=== PATIENT | female | born 1950 | race Caucasian/White ===

== ENCOUNTER → 2017-12-09 08:23 | Outpatient (CLI) | payer MEDICARE, OTHER, SELFPAY ==
--- NOTE | 2017-12-09 08:27 | BI_ITS ---
MAMMOGRAPHY - BILATERAL SCREENING REASON FOR EXAM: Female, 67 years old. Routine annual screening examination. PERTINENT HISTORY: Aunt with breast cancer. TECHNIQUE: Digital bilateral breast maureen (3D mammographic acquisition) in the CC and MLO projections. 2-D mediolateral oblique (MLO) and craniocaudad (CC) views of both breasts were obtained. CAD: Full Field Digital Mammography with Computer Added Detection was performed. COMPARISON: Comparison is made with prior examination dated June 28, 2016 and June 27, 2015. FINDINGS: Breast Composition: The breasts are heterogeneously dense, which may obscure small masses. There are no dominant masses or suspicious calcifications. No other significant abnormalities are identified. There has been no significant change since the prior study. BI/SCREENING MAMM (CAD), BILAT IMPRESSION: Stable bilateral screening mammogram. Yearly follow-up mammogram recommended. (A) ASSESSMENT CATEGORY: BIRADS Category 1: Negative. A letter regarding these results will be sent to the patient by the facility within 30 days. Approximately 10% of breast cancers are not detected by mammography. A normal mammogram should not delay biopsy of a clinically suspicious abnormality. [id number] Electronically Signed: Keo Palomo MD at 13:14 EDT Tel [phone], Service support ,
== END ==
PROVIDERS: Family Provider Family Medicine; PCP Family Medicine; Visit Provider Family Medicine
DX: Z00.00 Encounter for general adult medical examination without abnormal findings (principal); Z12.31 Encounter for screening mammogram for malignant neoplasm of breast
CPT/HCPCS: 77063; 77067

== ENCOUNTER → 2018-12-05 09:07 | Outpatient (CLI) | payer MEDICARE, OTHER, SELFPAY ==
--- NOTE | 2018-12-05 09:14 | BD_ITS ---
STUDY: DUAL ENERGY X-RAY ABSORPTIOMETRY / DXA REASON FOR EXAM: Female, 68 years old. The patient is postmenopausal. No loss of height. TECHNIQUE: Bone Mineral Density (BMD) measurements of lumbar spine and bilateral hips were obtained. COMPARISON: Comparison is made with prior examination dated June 26, 2014. FINDINGS: Lumbar Spine (L1-L4): g/cm2 (1.050) / T-score (-1.1) / Z-score (0.5) Findings are suggestive of osteopenia with a low fracture risk. Increased thoracic kyphosis. Left Femur Total: g/cm2 (0.907) / T-score (-0.8) / Z-score (0.5) Left Femoral Neck: g/cm2 (0.764) / T-score (-2.0) / Z-score (-0.4) Right Femur Total: g/cm2 (0.864) / T-score (-1.1) / Z-score (0.1) Right Femoral Neck: g/cm2 (0.742) / T-score (-2.1) / Z-score (-0.6) The T-Scores on the most recent prior examination were: Lumbar Spine (L1-L4): There has been worsening of bone density since the previous examination. Left Femur Total: which represents a worsening of 1.7%. Right Femur Total: which represents an improvement of 0.1%. BD/Dexa Bone Density Study IMPRESSION: The patient is considered osteopenic as outlined below according to World [employer] Organization (WHO) criteria with a moderate fracture risk. There has been worsening of bone density since the previous examination. Reference Information: The T-score is the number of standard deviations above or below the standard which is normal for young adults at their peak bone mineral density. The World Health Organization (WHO) interprets the T-scores as follows: Above -1 Normal bone density Between -1 and -2.5 Osteopenia Equal to / or below -2.5 Osteoporosis As a practical clinical guideline, osteopenia may be graded as follows: Mild -1 through -1.5 Moderate -1.6 through -2.0 Severe -2.1 through -2.4 The Z-score is the number of standard deviations above or below age-matched controls. A Z-score of less than -1.5 would be considered abnormal. References: 1. NIH Osteoporosis and Related Bone Diseases http://www.osteo.org 2. International Society for Clinical Densitometry http://www.iscd.org 3. National Osteoporosis Foundation http://www.nof.org Electronically Signed: Keo Palomo, at 11:11 EDT , Service support ,
== END ==
PROVIDERS: Family Provider Family Medicine; PCP Family Medicine; Referring Provider Family Medicine; Visit Provider Family Medicine
DX: Z78.0 Asymptomatic menopausal state (principal)
CPT/HCPCS: 77080

== ENCOUNTER → 2018-12-18 15:07 | Outpatient (CLI) | payer MEDICARE, OTHER, SELFPAY ==
--- NOTE | 2018-12-18 15:09 | BI_ITS ---
MAMMOGRAPHY - BILATERAL SCREENING REASON FOR EXAM: Female, 68 years old. Routine annual screening examination. PERTINENT HISTORY: Aunt with breast cancer. TECHNIQUE: Digital bilateral breast wayne (3D mammographic acquisition) in the CC and MLO projections. 2-D mediolateral oblique (MLO) and craniocaudad (CC) views of both breasts were obtained. CAD: Full Field Digital Mammography with Computer Added Detection was performed. COMPARISON: Comparison is made with prior examination dated December 09, 2017 and June 28, 2016. FINDINGS: Breast Composition: The breasts are heterogeneously dense, which may obscure small masses. There are no dominant masses or suspicious calcifications. No other significant abnormalities are identified. There has been no significant change since the prior study. BI/SCREEN MAMM (CAD) W/WAYNE BILAT IMPRESSION: Stable bilateral screening mammogram. Yearly follow-up mammogram recommended. (A) ASSESSMENT CATEGORY: BIRADS Category 1: Negative. A letter regarding these results will be sent to the patient by the facility within 30 days. Approximately 10% of breast cancers are not detected by mammography. A normal mammogram should not delay biopsy of a clinically suspicious abnormality. [id number] Electronically Signed: Keo Palomo, at 15:56 EDT , Service support ,
== END ==
PROVIDERS: Family Provider Family Medicine; PCP Family Medicine; Referring Provider Family Medicine; Visit Provider Family Medicine
DX: Z12.31 Encounter for screening mammogram for malignant neoplasm of breast (principal)
CPT/HCPCS: 77063; 77067

== ENCOUNTER → 2018-12-20 08:12 | Outpatient (CLI) | payer MEDICARE, OTHER, SELFPAY ==
[2018-12-20 10:20] LABS: Anion Gap 8 (5-15); BUN 22 mg/dL (7-18); Calcium,Total 8.7 mg/dL (8.5-10.1); Chloride 109 mmol/L (98-107); Cholesterol 208 mg/dL (200); Creatinine, Serum 1.05 mg/dL (0.55-1.02); EST Glomerular Filtration Rate 56 mL/min (>60); Est Glom Filt Rate - Afr Amer 67 mL/min (>60); Glucose 90 mg/dL (74-106); High Density Lipoprotein 77 mg/dL; Potassium 4.4 mmol/L (3.5-5.1); Sodium Level 142 mmol/L (136-145); Triglycerides 64 mg/dL; Very Low Density Lipoprotein 13 mg/dL (5-40)
[2018-12-20 10:23] LABS: Vitamin D,25 Hydroxy 47.4 ng/mL (29.95-100.01)
== END ==
PROVIDERS: Family Provider Family Medicine; PCP Family Medicine; Referring Provider Family Medicine; Visit Provider Family Medicine
DX: Z13.220 Encounter for screening for lipoid disorders (principal); R03.0 Elevated blood-pressure reading, without diagnosis of hypertension
CPT/HCPCS: 36415; 80048; 80061; 82306

== ENCOUNTER → 2020-03-05 07:33 | Outpatient (CLI) | payer MEDICARE, OTHER, SELFPAY ==
--- NOTE | 2020-03-05 07:36 | BI_ITS ---
MAMMOGRAPHY - BILATERAL SCREENING REASON FOR EXAM: Female, 69 years old. Routine annual screening examination. PERTINENT HISTORY: Aunt with breast cancer. TECHNIQUE: Digital bilateral breast wayne (3D mammographic acquisition) in the CC and MLO projections. 2-D mediolateral oblique (MLO) and craniocaudad (CC) views of both breasts were obtained. CAD: Full Field Digital Mammography with Computer Added Detection was performed. COMPARISON: Comparison is made with the prior examination dated 12/18/2018 and 12/09/2017 FINDINGS: Breast Composition: The breasts are heterogeneously dense, which may obscure small masses. There are no dominant masses or suspicious calcifications. Stable benign appearing bilateral axillary lymph nodes. No other significant abnormalities are identified. There has been no significant change since the prior study. BI/SCREEN MAMM (CAD) W/WAYNE BILAT IMPRESSION: Stable bilateral screening mammogram. Yearly follow-up mammogram recommended. (A) ASSESSMENT CATEGORY: BIRADS Category 2: Benign. A letter regarding these results will be sent to the patient by the facility within 30 days. Approximately 10% of breast cancers are not detected by mammography. A normal mammogram should not delay biopsy of a clinically suspicious abnormality. [id number] Electronically Signed: Keo Palomo, at 8:29 EDT , Service support ,
== END ==
PROVIDERS: PCP Family Medicine; Referring Provider Family Medicine; Visit Provider Family Medicine
DX: Z12.31 Encounter for screening mammogram for malignant neoplasm of breast (principal)
CPT/HCPCS: 77063; 77067

== ENCOUNTER → 2020-03-12 08:33 | Outpatient (CLI) | payer MEDICARE, OTHER, SELFPAY ==
[2020-03-12 10:33] LABS: Anion Gap 6 (5-15); BUN 18 mg/dL (7-18); BUN/Creat Ratio 16.8 RATIO (10-20); Calcium,Total 8.7 mg/dL (8.5-10.1); Chloride 107 mmol/L (98-107); Cholesterol 221 mg/dL (200); Creatinine, Serum 1.07 mg/dL (0.55-1.02); EST Glomerular Filtration Rate 54 mL/min (>60); Est Glom Filt Rate - Afr Amer 66 mL/min (>60); Glucose 91 mg/dL (74-106); High Density Lipoprotein 81 mg/dL; Potassium 3.9 mmol/L (3.5-5.1); Sodium Level 139 mmol/L (136-145); Triglycerides 108 mg/dL; Very Low Density Lipoprotein 22 mg/dL (5-40)
== END ==
PROVIDERS: PCP Family Medicine; Referring Provider Family Medicine; Visit Provider Family Medicine
DX: E55.9 Vitamin D deficiency, unspecified (principal); Z13.220 Encounter for screening for lipoid disorders; R03.0 Elevated blood-pressure reading, without diagnosis of hypertension
CPT/HCPCS: 36415; 80048; 80061; 82306

== ENCOUNTER → 2020-12-18 10:50 | Outpatient (CLI) | payer MEDICARE, OTHER, SELFPAY ==
--- NOTE | 2020-12-18 10:58 | MRI_ITS ---
STUDY: MRI LEFT KNEE REASON FOR EXAM: Anterior left knee pain and swelling for 3-5 years. TECHNIQUE: Standardized fat and water weighted pulse sequences were obtained in all 3 orthogonal planes. COMPARISON: Radiographs 04/04/2017. FINDINGS: There is diffuse tear/degeneration of the medial meniscus (proton-density sagittal images 10-16; proton-density coronal images 14-19). There is arthrosis of the medial femorotibial compartment with marginal osteophytes and chondral loss (T2 sagittal image 9). There is very mild bone edema of the medial femoral condyle (T2 coronal images 18-20). Normal medial collateral ligamentous complex (MCL). Normal distal semimembranosus, gracilis and semitendinosus tendons. There is a complex tear of the anterior horn of the lateral meniscus (proton-density sagittal images 29-32). Normal hyaline cartilage of the lateral femorotibial compartment. There are small marginal osteophytes of the lateral femorotibial compartment. Normal lateral femoral condyle and tibial plateau. Normal proximal tibiofibular articulation. Normal lateral collateral (fibular) ligament. Normal popliteus tendon. Normal biceps femoris tendon. Normal anterior cruciate ligament (ACL). Normal posterior cruciate ligament (PCL). Normal congruent patellofemoral articulation. There is mild arthrosis of the patellofemoral compartment with marginal osteophytes and mild partial-thickness chondral loss (T2 sagittal image 12). Normal medial and lateral patellar retinaculum. Normal visualized quadriceps tendon. Normal patellar tendon. Normal Hoffa''s fat pad. There is a moderate-sized joint effusion. There is a popliteal cyst (T2 sagittal images 6-9) measuring approximately 4 cm in length. There is mild prepatellar bursitis (T2 sagittal images 12, 13). There is mild cystic change of the proximal tibia at the insertion site of the anterior cruciate ligament. MRI/Lower Ext Joint Only (Routine) IMPRESSION: Tear/degeneration of the medial meniscus. Lateral meniscal tear. Arthrosis of the medial femorotibial and patellofemoral compartments. Very mild bone edema of the medial femoral condyle.s Joint effusion. Popliteal cyst. Mild prepatellar bursitis. Electronically Signed: Mikel Gray MD at 12:50 EDT Tel , Service support ,
== END ==
PROVIDERS: PCP Family Medicine; Referring Provider Family Medicine; Visit Provider Family Medicine
DX: M25.562 Pain in left knee (principal)
CPT/HCPCS: 73721

== ENCOUNTER → 2021-01-26 14:20 | Outpatient (CLI) | payer MEDICARE, OTHER, SELFPAY ==
[2021-01-26 17:45] LABS: Absolute Lymphocyte Count 1.39 X10^3/uL (0.83-4.51); Absolute Neutrophil Count 3.7 X10^3/uL (2.0-7.7); Basophil# 0.08 X10^3/uL; Basophil% 1.4 % (0-1); Eosinophil# 0.07 X10^3/uL; Eosinophils% 1.2 % (0-5); Hematocrit 43.9 % (37-47); Hemoglobin 14.1 g/dL (12.0-15.0); Lymphocyte # 1.39 X10^3/ul (0.83-4.51); Mean Corp Hgb Conc 32.1 g/dL (32-36); Mean Corpuscular Hgb 28.8 pg (27.0-32.0); Mean Corpuscular Volume 89.8 fL (81-99); Mean Platelet Vol. 10.9 fl (6.2-12.0); Monocyte# 0.56 X10^3/uL; Monocyte% 9.7 % (0-10); NRBC Flagged by Analyzer 0 % (0-5); Neutrophil # 3.67 X10^3/uL (2.7-7.7); Neutrophil % 63.5 % (47-70); Platelet Count 244 K/mm3 (150-450); RBC Distribution Width CV 14.3 % (11.6-14.6); Red Blood Count 4.89 M/mm3 (4.2-5.4); White Blood Count 5.8 K/mm3 (4.4-11.0)
[2021-01-26 18:16] LABS: Anion Gap 10 (5-15); BUN 23 mg/dL (7-18); BUN/Creat Ratio 24.3 RATIO (10-20); Calcium,Total 9.2 mg/dL (8.5-10.1); Chloride 102 mmol/L (98-107); Creatinine, Serum 0.95 mg/dL (0.55-1.02); EST Glomerular Filtration Rate 62 mL/min (>60); Est Glom Filt Rate - Afr Amer 75 mL/min (>60); Glucose 82 mg/dL (74-106); Potassium 4.3 mmol/L (3.5-5.1); Sodium Level 137 mmol/L (136-145)
== END ==
PROVIDERS: PCP Family Medicine; Referring Provider Family Medicine; Visit Provider Family Medicine
DX: Z00.00 Encounter for general adult medical examination without abnormal findings (principal)
CPT/HCPCS: 36415; 80048; 85025

== ENCOUNTER → 2021-02-05 06:45 | Outpatient (CLI) | payer MEDICARE, OTHER, SELFPAY ==
--- NOTE | 2021-02-05 06:46 | CT_ITS ---
STUDY: LEFT LOWER EXTREMITY CT SCAN REASON FOR EXAM: Female, 70 years old. VARUS DEFORMITY,NOT ELSEWHERE CLASSIFIED, L KNEE. Presurgical planning. RADIATION DOSAGE (If Supplied By Facility): CTDIvol = ( 20.03 ) mGy, DLP = ( 1072.55 ) mGycm. Individualized dose optimization techniques were used for this CT.? TECHNIQUE: Axial multidetector CT scan of the left lower extremity. Coronal and sagittal reformatted images. COMPARISON: MRI dated 12/18/2020. FINDINGS: No acute fracture, dislocation or cortical destruction. Left hip: Left hip mild osteoarthritis. Left proximal femur nonaggressive sclerotic bone lesion measuring 1.1 x 1 cm (coronal image 65 series 601). Mild pubic symphysis arthrosis. Visualized intra-abdominal/pelvic contents within normal limits given technique. Left knee: Severe medial compartment arthrosis. Mild lateral compartment arthrosis. Mild patellofemoral arthrosis. Quadriceps enthesophyte. Large volume joint effusion. Moderate-sized popliteal cyst. Mild soft tissue swelling. Left ankle: Plantar spur. Achilles enthesophyte. Minimal tibiotalar and subtalar arthrosis. Mild soft tissue swelling. CT/Extremity Lower without Contra IMPRESSION: Left knee tricompartmental osteoarthritis predominating medially Left knee large joint effusion, moderate sized popliteal cyst and mild soft tissue swelling Left hip and left ankle mild osteoarthritis Left proximal femoral nonaggressive appearing sclerotic bone lesion (statistically bone island unless history of malignancy) Electronically Signed: Cody Ramírez DO at 12:55 EDT Tel , Service support ,
== END ==
PROVIDERS: PCP Family Medicine; Referring Provider Specialist; Visit Provider Specialist
DX: M21.162 Varus deformity, not elsewhere classified, left knee (principal)
CPT/HCPCS: 73700

== ENCOUNTER → 2021-02-09 07:34 | Outpatient (CLI) | payer MEDICARE, OTHER, SELFPAY ==
[2021-02-09 10:23] LABS: Albumin, Serum 3.6 g/dL (3.2-5.0)
== END ==
PROVIDERS: PCP Family Medicine; Referring Provider Physician Assistant Surgical; Visit Provider Physician Assistant Surgical
DX: Z01.818 Encounter for other preprocedural examination (principal)
CPT/HCPCS: 36415; 82040

== ENCOUNTER → 2021-04-16 07:44 | Outpatient (CLI) | payer MEDICARE, OTHER, SELFPAY ==
[2021-04-16 10:22] LABS: Anion Gap 7 (5-15); BUN 21 mg/dL (7-18); BUN/Creat Ratio 20.6 RATIO (10-20); Calcium,Total 8.9 mg/dL (8.5-10.1); Chloride 102 mmol/L (98-107); Cholesterol 203 mg/dL (200); Creatinine, Serum 1.02 mg/dL (0.55-1.02); EST Glomerular Filtration Rate 57 mL/min (>60); Est Glom Filt Rate - Afr Amer 69 mL/min (>60); Glucose 88 mg/dL (74-106); High Density Lipoprotein 71 mg/dL; Potassium 4.2 mmol/L (3.5-5.1); Sodium Level 136 mmol/L (136-145); Triglycerides 107 mg/dL; Very Low Density Lipoprotein 21 mg/dL (5-40)
== END ==
PROVIDERS: PCP Family Medicine; Referring Provider Family Medicine; Visit Provider Family Medicine
DX: I10 Essential (primary) hypertension (principal)
CPT/HCPCS: 36415; 80048; 80061

== ENCOUNTER → 2021-06-30 10:47 | Outpatient (CLI) | payer MEDICARE, OTHER, SELFPAY ==
--- NOTE | 2021-06-30 10:49 | BI_ITS ---
MAMMOGRAPHY - BILATERAL SCREENING REASON FOR EXAM: Female, 71 years old. Routine annual screening examination. PERTINENT HISTORY: Aunt with breast cancer. TECHNIQUE: Digital bilateral breast maureen (3D mammographic acquisition) in the CC and MLO projections. 2-D mediolateral oblique (MLO) and craniocaudad (CC) views of both breasts were obtained. CAD: Full Field Digital Mammography with Computer Added Detection was performed. COMPARISON: Comparison is made with prior study dated 03/05/2020 and 12/18/2018. FINDINGS: Breast Composition: The breasts are heterogeneously dense, which may obscure small masses. There are no dominant masses or suspicious calcifications. Stable small benign-appearing bilateral axillary lymph nodes. No other significant abnormalities are identified. There has been no significant change since the prior study. BI/SCREENING MAMM (CAD), BILAT IMPRESSION: Stable bilateral screening mammogram. Yearly follow-up mammogram recommended. (A) ASSESSMENT CATEGORY: BIRADS Category 2: Benign. A letter regarding these results will be sent to the patient by the facility within 30 days. Approximately 10% of breast cancers are not detected by mammography. A normal mammogram should not delay biopsy of a clinically suspicious abnormality. [id number] Electronically Signed: Keo Palomo MD at 12:54 EST , Service support ,
== END ==
PROVIDERS: PCP Family Medicine; Referring Provider Family Medicine; Visit Provider Family Medicine
DX: Z12.31 Encounter for screening mammogram for malignant neoplasm of breast (principal)
CPT/HCPCS: 77067

== ENCOUNTER → 2021-11-20 | Outpatient (CLI) | payer MEDICARE, OTHER, SELFPAY ==
[2021-11-20 10:36] LABS: BUN 23 mg/dL (7-18); Calcium,Total 8.9 mg/dL (8.5-10.1); Cholesterol 229 mg/dL (200); EST Glomerular Filtration Rate 58 mL/min (>60); Est Glom Filt Rate - Afr Amer 71 mL/min (>60); Glucose 96 mg/dL (74-106); Triglycerides 102 mg/dL
[2021-11-20 10:37] LABS: Anion Gap 8 (5-15); Chloride 103 mmol/L (98-107); High Density Lipoprotein 75 mg/dL; Potassium 3.7 mmol/L (3.5-5.1); Sodium Level 136 mmol/L (136-145); Very Low Density Lipoprotein 20 mg/dL (5-40)
== END | disposition home or self-care (01) ==
LOC: MFPLAB 08:52
PROVIDERS: PCP Family Medicine; Visit Provider Family Medicine
DX: I10 Essential (primary) hypertension (principal)
CPT/HCPCS: 36415; 80048; 80061

== ENCOUNTER → 2022-07-01 | Outpatient (CLI) | payer MEDICARE, OTHER, SELFPAY ==
--- NOTE | 2022-07-01 13:12 | BI_ITS ---
MAMMOGRAPHY - BILATERAL SCREENING REASON FOR EXAM: Female, 72 years old. Routine annual screening examination. PERTINENT HISTORY: Aunt with breast cancer. TECHNIQUE: Digital bilateral breast maureen (3D mammographic acquisition) in the CC and MLO projections. 2-D mediolateral oblique (MLO) and craniocaudad (CC) views of both breasts were obtained. CAD: Full Field Digital Mammography with Computer Added Detection was performed. COMPARISON: Comparison is made with prior study dated 06/30/2021 and 03/05/2020. FINDINGS: Breast Composition: The breasts are heterogeneously dense, which may obscure small masses. There are no dominant masses or suspicious calcifications. Stable small benign-appearing bilateral axillary. No other significant abnormalities are identified. There has been no significant change since the prior study. BI/SCREENING MAMM (CAD), BILAT IMPRESSION: Stable bilateral screening mammogram. Yearly follow-up mammogram recommended. (A) ASSESSMENT CATEGORY: BIRADS Category 2: Benign. A letter regarding these results will be sent to the patient by the facility within 30 days. Approximately 10% of breast cancers are not detected by mammography. A normal mammogram should not delay biopsy of a clinically suspicious abnormality. [id number] Electronically Signed: Keo Palomo MD at 14:22 EST ,
== END | disposition home or self-care (01) ==
LOC: OPBI 13:10
PROVIDERS: PCP Family Medicine; Referring Provider Family Medicine; Visit Provider Family Medicine
DX: Z12.31 Encounter for screening mammogram for malignant neoplasm of breast (principal); Z80.3 Family history of malignant neoplasm of breast
CPT/HCPCS: 77067

== ENCOUNTER → 2022-11-24 | Outpatient (CLI) | payer MEDICARE, OTHER, SELFPAY ==
--- NOTE | 2022-11-24 12:00 | RAD_ITS ---
EXAM: XR BILATERAL HIPS WITH PELVIS WHEN PERFORMED, 2 VIEWS CLINICAL INDICATION: HIP PAIN TECHNIQUE: Frontal view of the bilateral hips with pelvis when performed. COMPARISON: No relevant prior studies available. FINDINGS: BONES/JOINTS: Unremarkable. No displaced fracture. No destructive or sclerotic lesions. Note that overlapping bowel shadows may however obscure fine detail. Sacroiliac joint is unremarkable. No widening of the pubic symphysis. The articular structures are unremarkable. SOFT TISSUES: Unremarkable. No soft tissue swelling or gas. RAD/Hips B/L min 2 views w/ Pelvis IMPRESSION: No evidence of displaced pelvic or hip fracture. Electronically Signed: Hans Zhang MD at 1:19 EDT ,
== END | disposition home or self-care (01) ==
LOC: MTRAD 11:58
PROVIDERS: PCP Family Medicine; Referring Provider Family Medicine; Visit Provider Family Medicine
DX: M25.559 Pain in unspecified hip (principal)
CPT/HCPCS: 73521

== ENCOUNTER → 2023-07-05 | Outpatient (CLI) | payer MEDICARE, OTHER, SELFPAY ==
--- NOTE | 2023-07-05 09:17 | BI_ITS ---
MAMMOGRAPHY - BILATERAL SCREENING 3-D TOMOSYNTHESIS REASON FOR EXAM: Female, 73 years old. Routine screening PERTINENT HISTORY: Aunt with breast cancer.. TECHNIQUE: 2-D mammograms and 3-D Tomosynthesis of the breast (s) were performed. CAD was performed. COMPARISON: 2021, 2020 FINDINGS: The breast composition is heterogeneously dense that can obscure small breast masses. Scattered benign calcifications are seen. No dense spiculated masses or suspicious microcalcifications are identified. No architectural distortion is identified. There is no skin thickening or retraction. There has been no significant change since the prior study. BI/SCRN MAMM (CAD)W/WAYNE BILAT IMPRESSION: No mammographic signs of malignancy. Routine yearly mammograms recommended. ASSESSMENT CATEGORY: BIRADS Category 2: Benign. A letter regarding these results will be sent to the patient by the facility within 30 days. FOLLOW UP RECOMMENDATION: Yearly follow up mammogram recommended. (A) Approximately 10% of breast cancers are not detected by mammography. A normal mammogram should not delay biopsy of a clinically suspicious abnormality. Electronically Signed: Yemi Tan MD at 9:58 EST ,
== END | disposition home or self-care (01) ==
LOC: OPBI 09:16
PROVIDERS: PCP Family Medicine; Referring Provider Family Medicine; Visit Provider Family Medicine
DX: Z12.31 Encounter for screening mammogram for malignant neoplasm of breast (principal)
CPT/HCPCS: 77063; 77067

== ENCOUNTER → 2024-02-23 | Outpatient (CLI) | payer MEDICARE, OTHER, SELFPAY ==
[2024-02-23 12:08] LABS: Absolute Lymphocyte Count 1.18 X10^3/uL (0.83-4.51); Absolute Neutrophil Count 2.9 X10^3/uL (2.0-7.7); Basophil# 0.07 X10^3/uL; Basophil% 1.5 % (0-1); Eosinophil# 0.11 X10^3/uL; Eosinophils% 2.3 % (0-5); Hematocrit 39.9 % (37-47); Lymphocyte # 1.18 X10^3/ul (0.83-4.51); Lymphocyte % 24.7 % (19-41); Mean Corp Hgb Conc 32.6 g/dL (32-36); Mean Corpuscular Volume 89.1 fL (81-99); Mean Platelet Vol. 10.8 fl (6.2-12.0); Monocyte# 0.51 X10^3/uL; Monocyte% 10.7 % (0-10); NRBC Flagged by Analyzer 0 % (0-5); Neutrophil # 2.88 X10^3/uL (2.7-7.7); Neutrophil % 60.4 % (47-70); Platelet Count 200 K/mm3 (150-450); RBC Distribution Width CV 13.8 % (11.6-14.6); RBC Distribution Width SD 45.2 fl (35.1-43.9); Red Blood Count 4.48 M/mm3 (4.2-5.4); White Blood Count 4.8 K/mm3 (4.4-11.0)
[2024-02-23 12:38] LABS: Anion Gap 11 (5-15); BUN 24 mg/dL (7-18); BUN/Creat Ratio 18.9 RATIO (10-20); Calcium,Total 9.4 mg/dL (8.5-10.1); Chloride 103 mmol/L (98-107); Cholesterol 207 mg/dL (200); Creatinine, Serum 1.27 mg/dL (0.55-1.02); EST Glomerular Filtration Rate 44 mL/min (>60); Est Glom Filt Rate - Afr Amer 53 mL/min (>60); Ferritin 89 ng/mL (8-252); Glucose 96 mg/dL (74-106); High Density Lipoprotein 81 mg/dL; Iron 78 ug/dL (50-170); Iron Binding Capacity,Total 377 ug/dL (250-450); PERCENT IRON SATURATION 20.7 % (15.0-55.0); Potassium 4.1 mmol/L (3.5-5.1); Sodium Level 136 mmol/L (136-145); Triglycerides 98 mg/dL; Very Low Density Lipoprotein 20 mg/dL (5-40)
== END | disposition home or self-care (01) ==
PROVIDERS: PCP Family Medicine; Referring Provider Family Medicine; Visit Provider Family Medicine
DX: D64.9 Anemia, unspecified (principal); I10 Essential (primary) hypertension
CPT/HCPCS: 36415; 80048; 80061; 82728; 83540; 83550; 85025

== ENCOUNTER → 2024-03-02 | Outpatient (CLI) | payer MEDICARE, OTHER, SELFPAY ==
--- NOTE | 2024-03-02 14:20 | TISS_PTH ---
PATIENT: DESTINEE NICOLE LOC: [facility] U#:[id number] AGE/SX: 73/F ROOM: RE03/02/[address]: Dr. Lucio Stone MD : 1950 BED: DIS: 03/02/2024 SPEC #: [id number] RECD: 03/02/24 17:26 STATUS: LANDON MORAN #: [id number] NAIN: 03/02/24 14:[address]: Lucio Stone DEPT: SURGICAL PATHOLOGY RECD BY: Silver Hubbard Tissues: Skin of back, NOS Procedures: Surgery Specimen Level IV HEADER OPERATION: Punch biopsy PRE-OP DIAGNOSIS: Punch biopsy of back TISSUE SUBMITTED: Punch biopsy of back MICROSCOPIC DIAGNOSIS Back lesion, punch biopsy: Consistent with cutaneous horn. Negative for malignancy. See comment. EDEN/ 03/06/2024 COMMENT Clinical correlation and appropriate follow up are necessary. Rebiopsy or excision of the lesion is suggested, if clinically indicated. Case has been reviewed in consultation with Dr. Leong who concurs with the above diagnosis. IDC:AM MICROSCOPIC DESCRIPTION Slides are reviewed. GROSS DESCRIPTION Received in fixative is one container labeled with the patient's name and designated Punch biopsy of back. The specimen consists of two punch biopsies of slade-white skin. One of the piece measures 0.8 x 0.5 x 0.5cm and the second piece measures 0.7 x 0.6 x 0.2cm. A defect is noted in the second piece measuring 0.4cm in greatest dimension. Both pieces are inked, bisected and submitted entirely in one cassette. 03/05/2024 TC:5 CPT:43248
== END | disposition home or self-care (01) ==
LOC: LABSPEC 17:52
PROVIDERS: PCP Family Medicine; Visit Provider Family Medicine
DX: L98.9 Disorder of the skin and subcutaneous tissue, unspecified (principal)
CPT/HCPCS: 88305

== ENCOUNTER → 2024-07-06 | Outpatient (CLI) | payer MEDICARE, OTHER, SELFPAY ==
--- NOTE | 2024-07-06 11:49 | BI_ITS ---
MAMMOGRAPHY - BILATERAL SCREENING 3-D TOMOSYNTHESIS REASON FOR EXAM: Female, 74 years old. screening PERTINENT HISTORY: No significant family history. TECHNIQUE: 2-D mammograms and 3-D Tomosynthesis of the breast (s) were performed. CAD was performed. COMPARISON: 07/05/2023 FINDINGS: The breast composition is Extermely dense tissue. Scattered benign calcifications are seen. No dense spiculated masses or suspicious microcalcifications are identified. No architectural distortion is identified. There is no skin thickening or retraction. There has been no significant change since the prior study. BI/SCRN MAMM (CAD)W/WAYNE BILAT IMPRESSION: No mammographic signs of malignancy. Routine yearly mammograms recommended. ASSESSMENT CATEGORY: BIRADS Category 1: Negative. A letter regarding these results will be sent to the patient by the facility within 30 days. FOLLOW UP RECOMMENDATION: Yearly follow up mammogram recommended. (A) Approximately 10% of breast cancers are not detected by mammography. A normal mammogram should not delay biopsy of a clinically suspicious abnormality. Electronically Signed: Giovanni Romano MD at 19:59 EST ,
== END | disposition home or self-care (01) ==
LOC: OPBI 11:48
PROVIDERS: PCP Family Medicine; Referring Provider Family Medicine; Visit Provider Family Medicine
DX: Z12.31 Encounter for screening mammogram for malignant neoplasm of breast (principal)
CPT/HCPCS: 77063; 77067

== ENCOUNTER → 2024-12-13 | Outpatient (CLI) | payer MEDICARE, OTHER, SELFPAY ==
[2024-12-13 11:39] LABS: Erythrocyte Sedimentation Rate 13 mm/hr (0-30)
[2024-12-13 11:41] LABS: Absolute Lymphocyte Count 1.35 X10^3/uL (0.83-4.51); Absolute Neutrophil Count 3.1 X10^3/uL (2.0-7.7); Basophil# 0.06 X10^3/uL; Basophil% 1.2 % (0-1); Eosinophil# 0.13 X10^3/uL; Eosinophils% 2.5 % (0-5); Hematocrit 35.2 % (37-47); Hemoglobin 11.7 g/dL (12.0-15.0); Lymphocyte # 1.35 X10^3/ul (0.83-4.51); Mean Corp Hgb Conc 33.2 g/dL (32-36); Mean Corpuscular Hgb 30.7 pg (27.0-32.0); Mean Corpuscular Volume 92.4 fL (81-99); Mean Platelet Vol. 10.5 fl (6.2-12.0); Monocyte# 0.57 X10^3/uL; NRBC Flagged by Analyzer 0 % (0-5); Neutrophil # 3.07 X10^3/uL (2.7-7.7); Neutrophil % 59.1 % (47-70); Platelet Count 270 K/mm3 (150-450); RBC Distribution Width CV 12.4 % (11.6-14.6); RBC Distribution Width SD 42.3 fl (35.1-43.9); Red Blood Count 3.81 M/mm3 (4.2-5.4); White Blood Count 5.2 K/mm3 (4.4-11.0)
--- OUTSIDE RECORDS SUMMARY | 2024-12-13 18:37 | XMS RPT_ITS | CCD ---
Author Organization [facility] CliniSyin Care Team Providers Care Budget Specialist Name Role Phone Lucio Stone Primary Care Unavailable Lucio Stone Attending Unavailable Chase, Lucio Referring Unavailable Lucio Stone Primary Care Unavailable Lucio Stone Attending Unavailable Chase, Lucio Primary Care Unavailable Chase, Lucio Attending Unavailable Chaes, Lucio Referring Unavailable Problems Active Problems Problem Classification Problem Date Documented Da te Episodic/Chronic Other screening for suspected conditions (not mental disorders or infectious disease) (1 source) Encounter for screening mammogram for malignant neoplasm of breast; Translations: [Encounter for screening mammogram for malignant neoplasm of breast] Onset: 08-01-2024 Episodic Past or Other Problems Problem Classification Problem Date Documented Da te Episodic/Chronic Deficiency and other anemia (1 source) Anemia, unspecified; Translations: [Anemia, unspecified] Onset: 03-14-2024 Episodic Other skin disorders (1 source) Disorder of the skin and subcutaneous tissue, unspecified; Translations: [Disorder of the skin and subcutaneous tissue, unspecified] Onset: 03-16-2024 Episodic Results Test Name Value Interpretation Reference Range Facility SCRN MAMM (CAD)W/WAYNE BILATo n 07-06-2024 SCRN MAMM (CAD)W/WAYNE BILAT [facility] Imaging Services [address] [place] [id number] SCRN MAMM (CAD)W/WAYNE BILAT MR#: [id number] Acct: [id number] Name: DESTINEE NICOLE Rep #: [id number] : 1950 F 74 From: Giovanni Romano MD PCP: Dr. Lucio Stone MD Status: REG CLI Study: SCRN MAMM (CAD)W/WAYNE BILAT Date of Exam: 06/11 01/31 Exam# [id number] Ordering Dr: Lucio Stone MD [id number] MAMMOGRAPHY - BILATERAL SCREENING 3-D TOMOSYNTHESIS REASON FOR EXAM: Female, 74 years old. screening PERTINENT HISTORY: No significant family history. TECHNIQUE: 2-D mammograms and 3-D Tomosynthesis of the breast (s) were performed. CAD was performed. COMPARISON: 07/05/2023 FINDINGS: The breast composition is Extermely dense tissue. Scattered benign calcifications are seen. No dense spiculated masses or suspicious microcalcifications are identified. No architectural distortion is identified. There is no skin thickening or retraction. There has been no significant change since the prior study. BI/SCRN MAMM (CAD)W/WAYNE BILAT IMPRESSION: No mammographic signs of malignancy. Routine yearly mammograms recommended. ASSESSMENT CATEGORY: BIRADS Category 1: Negative. A letter regarding these results will be sent to the patient by the facility within 30 days. FOLLOW UP RECOMMENDATION: Yearly follow up mammogram recommended. (A) Approximately 10% of breast cancers are not detected by mammography. A normal mammogram should not delay biopsy of a clinically suspicious abnormality. Electronically Signed: Giovanni Romano MD at 19:59 EST , CC: Dr. Lucio Stone MD Production Operator: Signed Normal [facility] Surgery Specimen Level Morgan 03-02-2024 Surgery Specimen Level IV Patient Age/Sex Location Account Attending Physician BONNIEHUSSAINDESTINEE A 73[id number] Lucio Stone MD Specimen: [id number] Received: 03/02/24 Status: LANDON Vu Num: [id number] Spec Type: Tissue Bx Subm Dr: Dr. Lucio Stone MD HEADER OPERATION: Punch biopsy PRE-OP DIAGNOSIS: Punch biopsy of back TISSUE SUBMITTED: Punch biopsy of back MICROSCOPIC DIAGNOSIS Back lesion, punch biopsy: Consistent with cutaneous horn. Negative for malignancy. See comment. / 03/06/2024 COMMENT Clinical correlation and appropriate follow up are necessary. Rebiopsy or excision of the lesion is suggested, if clinically indicated. Case has been reviewed in consultation with Dr. Leong who concurs with the above diagnosis. IDC:AM MICROSCOPIC DESCRIPTION Slides are reviewed. GROSS DESCRIPTION Received in fixative is one container labeled with the patient's name and designated Punch biopsy of back. The specimen consists of two punch biopsies of slade-white skin. One of the piece measures 0.8 x 0.5 x 0.5cm and the second piece measures 0.7 x 0.6 x 0.2cm. A defect is noted in the second piece measuring 0.4cm in greatest dimension. Both pieces are inked, bisected and submitted entirely in one cassette. [facility] 03/05/2024 TC:5 CPT:18595 Patient Age/Sex Location Account Attending Physician DESTINEE NICOLE 73/F [facility] [id number] Dr. Lucio Stone MD Signed (signature on file) Dr. Son Lo MD 03/06/24 1223 Normal [facility] Comment on above: Performed By: #### P GERHARD #### [facility] Laboratory [facility] [place], [address] Basic Metabolic Profile (BMP )on 02-23-2024 BUN/CRE 18.9 RATIO Normal 10-20 [facility] Comment on above: Performed By: #### L 500.2500, L100.0100, L503.6550, L503.6030, L500.4100 #### [facility] [address] [place], [address] CA,Total 9.4 mg/dL Normal 8.5-10.1 [facility] Comment on above: Performed By: #### L 500.2500, L100.0100, L503.6550, L503.6030, L500.4100 #### [facility] [address] [place], [address] Chloride [Moles/Vol] 103 mmol/L Normal 98-107 [facility] Comment on above: Performed By: #### L 500.2500, L100.0100, L503.6550, L503.6030, L500.4100 #### [facility] [address] [place], [address] CO2 [Moles/Vol] 22.0 mmol/L Normal 21.0-32.0 [facility] Comment on above: Performed By: #### L 500.2500, L100.0100, L503.6550, L503.6030, L500.4100 #### [facility] [address] [place], [address] Creatinine [Mass/Vol] 1.27 mg/dL High 0.55-1.02 [facility] Comment on above: Result Comment: The validity of the calculated GFR GFRAA in patients over 70 years has not been determined. Clinical correlation is essential. Performed By: #### L 500.2500, L100.0100, L503.6550, L503.6030, L500.4100 #### [facility] [address] [place], [address] EST GFR - AA 53 mL/min Low >60 [facility] Comment on above: Result Comment: Afri can [place] GFR Calc Performed By: #### L 500.2500, L100.0100, L503.6550, L503.6030, L500.4100 #### [facility] [address] [place], [address] GAP 11 Normal 5-15 [facility] Comment on above: Performed By: #### L 500.2500, L100.0100, L503.6550, L503.6030, L500.4100 #### [facility] [address] [place], [address] GFR/1.73 sq M.predicted among non-blacks MDRD (S/P/Bld) [Vol rate/Area] 44 mL/min/{1.73_m2} Low >60 [facility] Comment on above: Result Comment: Non- GFR Calc Performed By: #### L 500.2500, L100.0100, L503.6550, L503.6030, L500.4100 #### [facility] [address] [place], [address] Glucose [Mass/Vol] 96 mg/dL Normal 74-106 [facility] Comment on above: Performed By: #### L 500.2500, L100.0100, L503.6550, L503.6030, L500.4100 #### [facility] [address] [place], [address] Potassium [Moles/Vol] 4.1 mmol/L Normal 3.5-5.1 [facility] Comment on above: Performed By: #### L 500.2500, L100.0100, L503.6550, L503.6030, L500.4100 #### [facility] [address] [place], [address] Sodium [Moles/Vol] 136 mmol/L Normal 136-145 [facility] Comment on above: Performed By: #### L 500.2500, L100.0100, L503.6550, L503.6030, L500.4100 #### [facility] [address] [place], [address] Urea nitrogen [Mass/Vol] 24 mg/dL High 7-18 [facility] Comment on above: Performed By: #### L 500.2500, L100.0100, L503.6550, L503.6030, L500.4100 #### [facility] [address] [place], [address] CBC W/Diff, Automatedon 02-08-2023 Absolute Lymph 1.18 X10 3/uL Normal 0.83-4.51 [facility] Comment on above: Performed By: #### L 500.2500, L100.0100, L503.6550, L503.6030, L500.4100 #### [facility] [address] [place], [address] Absolute Neut 2.9 X10 3/uL Normal 2.0-7.7 [facility] Comment on above: Performed By: #### L 500.2500, L100.0100, L503.6550, L503.6030, L500.4100 #### [facility] [address] [place], [address] Basophils/100 WBC (Bld) 1.5 % High 0-1 [facility] Comment on above: Performed By: #### L 500.2500, L100.0100, L503.6550, L503.6030, L500.4100 #### [facility] [address] [place], [address] Eosinophils/100 WBC (Bld) 2.3 % Normal 0-5 [facility] Comment on above: Performed By: #### L 500.2500, L100.0100, L503.6550, L503.6030, L500.4100 #### [facility] [address] [place], [address] Erythrocyte distribution width (RBC) [Ratio] 13.8 % Normal 11.6-14.6 [facility] Comment on above: Performed By: #### L 500.2500, L100.0100, L503.6550, L503.6030, L500.4100 #### [facility] [address] [place], [address] Hematocrit (Bld) [Volume fraction] 39.9 % Normal 37-47 [facility] Comment on above: Performed By: #### L 500.2500, L100.0100, L503.6550, L503.6030, L500.4100 #### [facility] [address] [place], [address] Hemoglobin (Bld) [Mass/Vol] 13.0 g/dL Normal 12.0-15.0 [facility] Comment on above: Performed By: #### L 500.2500, L100.0100, L503.6550, L503.6030, L500.4100 #### [facility] [address] [place], [address] IG% 0.400 Normal 0.0-0.9 [facility] Comment on above: Result Comment: IG% - Immature Granulocytes (promyelocytes, myelocytes and metamyelocytes) > 1% indicates that a LEFT SHIFT is Present. Performed By: #### L 500.2500, L100.0100, L503.6550, L503.6030, L500.4100 #### [facility] [address] [place], [address] Lymphocytes/100 WBC (Bld) 24.7 % Normal 19-41 [facility] Comment on above: Performed By: #### L 500.2500, L100.0100, L503.6550, L503.6030, L500.4100 #### [facility] [address] [place], [address] MCH (RBC) [Entitic mass] 29.0 pg Normal 27.0-32.0 [facility] Comment on above: Performed By: #### L 500.2500, L100.0100, L503.6550, L503.6030, L500.4100 #### [facility] [address] [place], [address] MCHC (RBC) [Mass/Vol] 32.6 g/dL Normal 32-36 [facility] Comment on above: Performed By: #### L 500.2500, L100.0100, L503.6550, L503.6030, L500.4100 #### [facility] [address] [place], [address] MCV (RBC) [Entitic vol] 89.1 fL Normal 81-99 [facility] Comment on above: Performed By: #### L 500.2500, L100.0100, L503.6550, L503.6030, L500.4100 #### [facility] [address] [place], [address] Monocytes/100 WBC (Bld) 10.7 % High 0-10 [facility] Comment on above: Performed By: #### L 500.2500, L100.0100, L503.6550, L503.6030, L500.4100 #### [facility] [address] [place], [address] Neutrophils/100 WBC (Bld) 60.4 % Normal 47-70 [facility] Comment on above: Performed By: #### L 500.2500, L100.0100, L503.6550, L503.6030, L500.4100 #### [facility] [address] [place], [address] Nucleated RBC (Bld) [#/Vol] 0 10*3/uL Normal 0-5 [facility] Comment on above: Performed By: #### L 500.2500, L100.0100, L503.6550, L503.6030, L500.4100 #### [facility] [address] [place], [address] Platelet mean volume (Bld) [Entitic vol] 10.8 fL Normal 6.2-12.0 [facility] Comment on above: Performed By: #### L 500.2500, L100.0100, L503.6550, L503.6030, L500.4100 #### [facility] [address] [place], [address] Platelets (Bld) [#/Vol] 200 10*3/uL Normal 150-450 [facility] Comment on above: Performed By: #### L 500.2500, L100.0100, L503.6550, L503.6030, L500.4100 #### [facility] [address] [place], [address] RBC (Bld) [#/Vol] 4.48 10*6/uL Normal 4.2-5.4 [facility] Comment on above: Performed By: #### L 500.2500, L100.0100, L503.6550, L503.6030, L500.4100 #### [facility] [address] [place], [address] RDW SD 45.2 fl High 35.1-43.9 [facility] Comment on above: Performed By: #### L 500.2500, L100.0100, L503.6550, L503.6030, L500.4100 #### [facility] [address] [place], [address] WBC (Bld) [#/Vol] 4.8 10*3/uL Normal 4.4-11.0 [facility] Comment on above: Performed By: #### L 500.2500, L100.0100, L503.6550, L503.6030, L500.4100 #### [facility] [address] [place], [address] Ferritinon 02-23-2024 Ferritin [Mass/Vol] 89 ng/mL Normal 8-252 [facility] Comment on above: Performed By: #### L 500.2500, L100.0100, L503.6550, L503.6030, L500.4100 #### [facility] [address] [place], [address] Iron+Iron Binding Capacityon 02-23-2024 Iron [Mass/Vol] 78 ug/dL Normal 50-170 [facility] Comment on above: Performed By: #### L 500.2500, L100.0100, L503.6550, L503.6030, L500.4100 #### [facility] [address] [place], [address] IRON SATURATION 20.7 Normal 15.0-55.0 [facility] Comment on above: Performed By: #### L 500.2500, L100.0100, L503.6550, L503.6030, L500.4100 #### [facility] [address] [place], [address] TIBC 377 ug/dL Normal 250-450 [facility] Comment on above: Performed By: #### L 500.2500, L100.0100, L503.6550, L503.6030, L500.4100 #### [facility] [address] [place], [address] Lipid Profileon 02-23-2024 Cholesterol [Mass/Vol] 207 mg/dL High 200 [facility] Comment on above: Result Comment: <200 mg/dL Desirable 200-240 mg/dL Borderline >240 mg/dL High Risk Performed By: #### L 500.2500, L100.0100, L503.6550, L503.6030, L500.4100 #### [facility] [address] [place], [address] Cholesterol in HDL [Mass/Vol] 81 mg/dL Normal [facility] Comment on above: Result Comment: The drugs N-Acetylcysteine and Metamizole may falsely depress this assay. Reference Range HDL <40 mg/dL Low HDL Cholesterol HDL >or= 60 mg/dL High HDL Cholesterol Performed By: #### L 500.2500, L100.0100, L503.6550, L503.6030, L500.4100 #### [facility] [address] [place], [address] Cholesterol in LDL [Mass/Vol] 106 mg/dL Normal 0-130 [facility] Comment on above: Performed By: #### L 500.2500, L100.0100, L503.6550, L503.6030, L500.4100 #### [facility] [address] [place], [address] Cholesterol in VLDL [Mass/Vol] 20 mg/dL Normal 5-40 [facility] Comment on above: Performed By: #### L 500.2500, L100.0100, L503.6550, L503.6030, L500.4100 #### [facility] [address] [place], [address] Triglyceride [Mass/Vol] 98 mg/dL Normal [facility] Comment on above: Result Comment: The drugs N-Acetylcysteine and Metamizole may falsely depress this assay. Serum Triglycerides Reference Interval Normal <150 mg/dL Borderline high 150 - 199 mg/dL High 200 - 499 mg/dL Very High > or = 500 mg/dL Performed By: #### L 500.2500, L100.0100, L503.6550, L503.6030, L500.4100 #### [facility] [address] [place], [address] Encounters Encounter Date Encounter Type Care Provider Facility Start: 07-06-2024 End: 07-06-2024 ambulatory [facility] Facility:[facility] Start: 03-02-2024 End: 03-02-2024 ambulatory [facility] Facility:[facility] Start: 02-23-2024 End: 02-23-2024 ambulatory [facility] Facility:[facility] Start: 07-05-2023 End: 07-05-2023 ambulatory [facility] Work Phone: Start: 07-05-2023 End: 07-05-2023 Patient encounter procedure [facility] Work Phone: Procedures Date Procedure Procedure Detail Performing Clinician Start: 07-05-2023 Screening mammography Payers Date Payer Category Payer Medicare [id number] 2024 Private Health Insurance [facility] [id number] 2024 Self-pay [id number] 2012 Unknown [facility] [id number] Unknown [id number] Unknown [id number] Unknown [id number] Social History Date Type Detail Facility Tobacco smoking stat [facility] Unknown if ever smoked [facility] Work Phone: Start: 1950 Sex Assigned At Female [facility] Evaluation note Note Date & Type Note Facility Evaluation note No assessment information availa ble [facility] Work Phone: Chief Complaint and Reason for Visit Chief Complaint SCREENING Summary Purpose Family History No Family History Records Found Advance Directives No Advanced Directives Records Found Additional Source Comments Care Teams (unrecognized sec tion and content) Team Status: Active Member Role Status Dates Dr. Lucio Stone MD Family Provider Active Dr. Lucio Stone MD Primary Care Provider Active Team Status: Inactive Member Role Status Dates Dr. Lucio Stone MD Primary Care Provi claribel, Attending Provider, Referring Provider Active Goals (unrecognized section and content) Goals may be documented in a n alternate section INFORMATION SOURCE (unrecogn ized section and content) DATE CREATED AUTHOR 08/03/2024 [facility] FOR RECORDS PERTAINING TO PATIENTS WHO ARE OR HAVE BEEN ENROLLED IN A CHEMICAL DEPENDENCY/SUBSTANCEABUSE PROGRAM, SOME INFORMATION MAY BE OMITTED. This clinical summary was aggregated from multiple sources. Caution should be exercised in using it in the provision of clinical care. This summary normalizes information from multiple sources, and as a consequence, information in this document may materially change the coding, format and clinical context of patient data. In addition, data may be omitted in some cases. CLINICAL DECISIONS SHOULD BE BASED ON THE PRIMARY CLINICAL RECORDS. [employer] [facility]. provides no warranty or guarantee of the accuracy or completeness of information in this document.
== END | disposition home or self-care (01) ==
LOC: LAB 10:16
PROVIDERS: PCP Family Medicine
DX: T84.84XA Pain due to internal orthopedic prosthetic devices, implants and grafts, initial encounter (principal)
CPT/HCPCS: 36415; 85025; 85652; 86140

== ENCOUNTER → 2024-12-14 | Outpatient (CLI) | payer MEDICARE, OTHER, SELFPAY ==
[2024-12-14 11:24] LABS: AUTO B FLUID DILUENT BKGD CT WBC <0.1 RBC <0.01 (W<.1,R<.01); RBC /Synovial Fluid 0.006 10^6/uL (0); Synovial Fld Mononuclear WBC # 0.436 10^3/ul; Synovial Fld Mononuclear WBC % 56.7 %; Synovial Fld Polynuclear WBC # 0.332 10^3/uL; Synovial Fld Polynuclear WBC % 43.3 %
[2024-12-14 11:25] LABS: Appearance /Synovial Fluid Sl Cl (CLEAR); Color / Synovial Fluid Yellow (Pale Yellow); Viscosity / Synovial Fluid Sl. Viscous (HIGH)
[2024-12-14 12:14] LABS: Lymph 31 %; Monocyte /Synovial Fluid 13 %; Neutrophil 54 % (0-25); Other Cell /Synovial Fluid 2 %
[2024-12-14 12:17] LABS: Body Fluid QC Type(s) BF1Q
--- OUTSIDE RECORDS SUMMARY | 2024-12-14 16:07 | XMS RPT_ITS | CCD ---
Author Organization [facility] Care Team Providers Care Glove Parts Inspector Name Role Phone Lucio Stone Referring Unavailable Stone, Lucio Primary Care Unavailable Stone, Lucio Attending Unavailable Stone, Lucio Primary Care Unavailable Carroll Espino Attending Unavailable Srinivas, Carroll Referring Unavailable Chase, Lucio Primary Care Unavailable Lauren Wilde Attending Unavailable Lauren Wilde Referring Unavailable Stone, Lucio Primary Care Unavailable Stone, Lucio Attending Unavailable Stone, Lucio Referring Unavailable Stone, Lucio Primary Care Unavailable Stone, Lucio Attending Unavailable Problems Active Problems Problem Classification Problem Date Documented Da te Episodic/Chronic Complication of device; implant or graft (2 sources) Pain due to internal orthopedic prosthetic devices, implants and grafts, subsequent encounter; Translations: [Pain due to internal orthopedic prosthetic devices, implants and grafts, initial encounter] Onset: 12-13-2024 Episodic Other connective tissue disease (1 source) Presence of left artificial knee joint; Translations: [Presence of left artificial knee joint] Onset: 12-14-2024 Chronic Past or Other Problems Problem Classification Problem Date Documented Da te Episodic/Chronic Deficiency and other anemia (1 source) Anemia, unspecified; Translations: [Anemia, unspecified] Onset: 03-14-2024 Episodic Other screening for suspected conditions (not mental disorders or infectious disease) (1 source) Encounter for screening mammogram for malignant neoplasm of breast; Translations: [Encounter for screening mammogram for malignant neoplasm of breast] Onset: 08-01-2024 Episodic Other skin disorders (1 source) Disorder of the skin and subcutaneous tissue, unspecified; Translations: [Disorder of the skin and subcutaneous tissue, unspecified] Onset: 03-16-2024 Episodic Results Test Name Value Interpretation Reference Range Facility Synovial Fluid RBC, WBC AND Diffon 12-14-2024 SYNOVIAL YANNICK. Sl Cl Normal CLEAR [facility] Comment on above: Performed By: #### L 500.4100, L500.2500, L100.0100, L503.6550, L503.6030 #### [facility] [address] [place], [address] SYNOVIAL COLOR Yellow Normal Pale Yellow [facility] Comment on above: Performed By: #### L 500.4100, L500.2500, L100.0100, L503.6550, L503.6030 #### [facility] [address] [place], [address] SYNOVIAL SOURCE Normal [facility] Comment on above: Performed By: #### L 500.4100, L500.2500, L100.0100, L503.6550, L503.6030 #### [facility] [address] [place], [address] VISCOSITY/SYFL Sl. Viscous Normal HIGH [facility] Comment on above: Performed By: #### L 500.4100, L500.2500, L100.0100, L503.6550, L503.6030 #### [facility] [address] [place], [address] PATH COM/SYFL May follow Normal [facility] Comment on above: Performed By: #### L 500.4100, L500.2500, L100.0100, L503.6550, L503.6030 #### [facility] [address] [place], [address] CBC W/Diff, Automatedon 06-0 -2024 Absolute Lymph 1.35 X10 3/uL Normal 0.83-4.51 [facility] Comment on above: Performed By: #### L 100.0100, L501.6710, L101.9900 #### [facility] [address] [place], [address] Absolute Neut 3.1 X10 3/uL Normal 2.0-7.7 [facility] Comment on above: Performed By: #### L 100.0100, L501.6710, L101.9900 #### [facility] [address] [place], [address] Basophils/100 WBC (Bld) 1.2 % High 0-1 [facility] Comment on above: Performed By: #### L 100.0100, L501.6710, L101.9900 #### [facility] [address] [place], [address] Eosinophils/100 WBC (Bld) 2.5 % Normal 0-5 [facility] Comment on above: Performed By: #### L 100.0100, L501.6710, L101.9900 #### [facility] [address] [place], [address] Erythrocyte distribution width (RBC) [Ratio] 12.4 % Normal 11.6-14.6 [facility] Comment on above: Performed By: #### L 100.0100, L501.6710, L101.9900 #### [facility] [address] [place], [address] Hematocrit (Bld) [Volume fraction] 35.2 % Low 37-47 [facility] Comment on above: Performed By: #### L 100.0100, L501.6710, L101.9900 #### [facility] [address] [place], [address] Hemoglobin (Bld) [Mass/Vol] 11.7 g/dL Low 12.0-15.0 [facility] Comment on above: Performed By: #### L 100.0100, L501.6710, L101.9900 #### [facility] [address] [place], [address] IG% 0.200 Normal 0.0-0.9 [facility] Comment on above: Result Comment: IG% - Immature Granulocytes (promyelocytes, myelocytes and metamyelocytes) > 1% indicates that a LEFT SHIFT is Present. Performed By: #### L 100.0100, L501.6710, L101.9900 #### [facility] [address] [place], [address] Lymphocytes/100 WBC (Bld) 26.0 % Normal 19-41 [facility] Comment on above: Performed By: #### L 100.0100, L501.6710, L101.9900 #### [facility] [address] [place], [address] MCH (RBC) [Entitic mass] 30.7 pg Normal 27.0-32.0 [facility] Comment on above: Performed By: #### L 100.0100, L501.6710, L101.9900 #### [facility] [address] [place], [address] MCHC (RBC) [Mass/Vol] 33.2 g/dL Normal 32-36 [facility] Comment on above: Performed By: #### L 100.0100, L501.6710, L101.9900 #### [facility] [address] [place], [address] MCV (RBC) [Entitic vol] 92.4 fL Normal 81-99 [facility] Comment on above: Performed By: #### L 100.0100, L501.6710, L101.9900 #### [facility] [address] [place], [address] Monocytes/100 WBC (Bld) 11.0 % High 0-10 [facility] Comment on above: Performed By: #### L 100.0100, L501.6710, L101.9900 #### [facility] [address] [place], [address] Neutrophils/100 WBC (Bld) 59.1 % Normal 47-70 [facility] Comment on above: Performed By: #### L 100.0100, L501.6710, L101.9900 #### [facility] [address] [place], [address] Nucleated RBC (Bld) [#/Vol] 0 10*3/uL Normal 0-5 [facility] Comment on above: Performed By: #### L 100.0100, L501.6710, L101.9900 #### [facility] [address] [place], [address] Platelet mean volume (Bld) [Entitic vol] 10.5 fL Normal 6.2-12.0 [facility] Comment on above: Performed By: #### L 100.0100, L501.6710, L101.9900 #### [facility] [address] [place], [address] Platelets (Bld) [#/Vol] 270 10*3/uL Normal 150-450 [facility] Comment on above: Performed By: #### L 100.0100, L501.6710, L101.9900 #### [facility] [address] [place], [address] RBC (Bld) [#/Vol] 3.81 10*6/uL Low 4.2-5.4 [facility] Comment on above: Performed By: #### L 100.0100, L501.6710, L101.9900 #### [facility] [address] [place], [address] RDW SD 42.3 fl Normal 35.1-43.9 [facility] Comment on above: Performed By: #### L 100.0100, L501.6710, L101.9900 #### [facility] [address] [place], [address] WBC (Bld) [#/Vol] 5.2 10*3/uL Normal 4.4-11.0 [facility] Comment on above: Performed By: #### L 100.0100, L501.6710, L101.9900 #### [facility] [address] [place], [address] CRPon 12-13-2024 C-REACTIVE PROT 24.00 mg/L High 0.0-3.0 [facility] Comment on above: Performed By: #### L 100.0100, L501.6710, L101.9900 #### [facility] [address] [place], [address] Erythrocyte Sed Rateon 12-13 SED RATE 13 mm/hr Normal 0-30 [facility] Comment on above: Performed By: #### L 100.0100, L501.6710, L101.9900 #### [facility] [address] [place], [address] SCRN MAMM (CAD)W/WAYNE BILATo n 07-06-2024 SCRN MAMM (CAD)W/WAYNE BILAT [facility] Imaging Services [address] [place] [address] SCRN MAMM (CAD)W/WAYNE BILAT MR#: [id number] Acct: [id number] Name: DESTINEE NICOLE Rep #: [id number] : 1950 F 74 From: Giovanni Romano MD PCP: Dr. Lucio Stone MD Status: [facility] Study: SCRN MAMM (CAD)W/WAYNE BILAT Date of Exam: 06/11 01/31 Exam# [id number] Ordering Dr: Lucio Stone MD [id number] MAMMOGRAPHY - BILATERAL SCREENING 3-D TOMOSYNTHESIS REASON [...] EST , CC: Dr. Lucio Stone MD Oral Surgery Assistant: Signed Normal [facility] Surgery Specimen Level Morgan 03-02-2024 Surgery Specimen Level IV Patient Age/Sex Location Account Attending Physician DESTINEE NICOLE 73/F [facility] [id number] Dr. Lucio Stone MD Specimen: [id number] Received: 03/02/24 Status: [facility] Vu Num: [id number] Spec Type: Tissue Bx Subm Dr: Dr. [...] bisected and submitted entirely in one cassette. . 03/05/2024 TC:5 CPT:97347 Patient Age/Sex Location Account Attending Physician DESTINEE NICOLE 73/F [facility] [id number] Dr. Lucio Stone MD Signed (signature on file) Dr. Son Lo MD 03/06/24 1223 Normal [facility] Comment on above: Performed By: #### P SUIV #### [facility] [address] [facility] [place], [place], [id number] Basic Metabolic Profile (BMP )on 02-23-2024 BUN/CRE 18.9 RATIO Normal 10-20 [facility] Comment on above: Performed By: #### L 500.4100, L500.2500, L100.0100, L503.6550, L503.6030 #### [facility] [address] [facility] [place], [address] CA,Total 9.4 mg/dL Normal 8.5-10.1 [facility] Comment on above: Performed By: #### L 500.4100, L500.2500, L100.0100, L503.6550, L503.6030 #### [facility] [address] [place], [address] Chloride [Moles/Vol] 103 mmol/L Normal 98-107 [facility] Comment on above: Performed By: #### L 500.4100, L500.2500, L100.0100, L503.6550, L503.6030 #### [facility] [address] [place], [address] CO2 [Moles/Vol] 22.0 mmol/L Normal 21.0-32.0 [facility] Comment on above: Performed By: #### L 500.4100, L500.2500, L100.0100, L503.6550, L503.6030 #### [facility] [address] [place], [address] Creatinine [Mass/Vol] 1.27 mg/dL High 0.55-1.02 [facility] Comment on above: Result Comment: The validity of the calculated GFR GFRAA in patients over 70 years has not been determined. Clinical correlation is essential. Performed By: #### L 500.4100, L500.2500, L100.0100, L503.6550, L503.6030 #### [facility] [address] [place], [address] EST GFR - AA 53 mL/min Low >60 [facility] Comment on above: Result Comment: Afri can [place]cu[place] GFR Calc Performed By: #### L 500.4100, L500.2500, L100.0100, L503.6550, L503.6030 #### [facility] [address] [place], [address] GAP 11 Normal 5-15 [facility] Comment on above: Performed By: #### L 500.4100, L500.2500, L100.0100, L503.6550, L503.6030 #### [facility] [address] [place], [address] GFR/1.73 sq M.predicted among non-blacks MDRD (S/P/Bld) [Vol rate/Area] 44 mL/min/{1.73_m2} Low >60 [facility] Comment on above: Result Comment: Non- GFR Calc Performed By: #### L 500.4100, L500.2500, L100.0100, L503.6550, L503.6030 #### [facility] [address] [place], [address] Glucose [Mass/Vol] 96 mg/dL Normal 74-106 [facility] Comment on above: Performed By: #### L 500.4100, L500.2500, L100.0100, L503.6550, L503.6030 #### [facility] [address] [place], [address] Potassium [Moles/Vol] 4.1 mmol/L Normal 3.5-5.1 [facility] Comment on above: Performed By: #### L 500.4100, L500.2500, L100.0100, L503.6550, L503.6030 #### [facility] [address] [place], [address] Sodium [Moles/Vol] 136 mmol/L Normal 136-145 [facility] Comment on above: Performed By: #### L 500.4100, L500.2500, L100.0100, L503.6550, L503.6030 #### [facility] [address] [place], [address] Urea nitrogen [Mass/Vol] 24 mg/dL High 7-18 [facility] Comment on above: Performed By: #### L 500.4100, L500.2500, L100.0100, L503.6550, L503.6030 #### [facility] [address] [place], [address] CBC W/Diff, Automatedon 08-07 15-2023 Absolute Lymph 1.18 X10 3/uL Normal 0.83-4.51 [facility] Comment on above: Performed By: #### L 500.4100, L500.2500, L100.0100, L503.6550, L503.6030 #### [facility] [address] [place], [address] Absolute Neut 2.9 X10 3/uL Normal 2.0-7.7 [facility] Comment on above: Performed By: #### L 500.4100, L500.2500, L100.0100, L503.6550, L503.6030 #### [facility] [address] [place], [address] Basophils/100 WBC (Bld) 1.5 % High 0-1 [facility] Comment on above: Performed By: #### L 500.4100, L500.2500, L100.0100, L503.6550, L503.6030 #### [facility] [address] [place], [address] Eosinophils/100 WBC (Bld) 2.3 % Normal 0-5 [facility] Comment on above: Performed By: #### L 500.4100, L500.2500, L100.0100, L503.6550, L503.6030 #### [facility] [address] [place], [address] Erythrocyte distribution width (RBC) [Ratio] 13.8 % Normal 11.6-14.6 [facility] Comment on above: Performed By: #### L 500.4100, L500.2500, L100.0100, L503.6550, L503.6030 #### [facility] [address] [place], [address] Hematocrit (Bld) [Volume fraction] 39.9 % Normal 37-47 [facility] Comment on above: Performed By: #### L 500.4100, L500.2500, L100.0100, L503.6550, L503.6030 #### [facility] [address] [place], [address] Hemoglobin (Bld) [Mass/Vol] 13.0 g/dL Normal 12.0-15.0 [facility] Comment on above: Performed By: #### L 500.4100, L500.2500, L100.0100, L503.6550, L503.6030 #### [facility] [address] [place], [address] IG% 0.400 Normal 0.0-0.9 [facility] Comment on above: Result Comment: IG% - Immature Granulocytes (promyelocytes, myelocytes and metamyelocytes) > 1% indicates that a LEFT SHIFT is Present. Performed By: #### L 500.4100, L500.2500, L100.0100, L503.6550, L503.6030 #### [facility] [address] [place], [address] Lymphocytes/100 WBC (Bld) 24.7 % Normal 19-41 [facility] Comment on above: Performed By: #### L 500.4100, L500.2500, L100.0100, L503.6550, L503.6030 #### [facility] [address] [place], [address] MCH (RBC) [Entitic mass] 29.0 pg Normal 27.0-32.0 [facility] Comment on above: Performed By: #### L 500.4100, L500.2500, L100.0100, L503.6550, L503.6030 #### [facility] [address] [place], [address] MCHC (RBC) [Mass/Vol] 32.6 g/dL Normal 32-36 [facility] Comment on above: Performed By: #### L 500.4100, L500.2500, L100.0100, L503.6550, L503.6030 #### [facility] [address] [place], [address] MCV (RBC) [Entitic vol] 89.1 fL Normal 81-99 [facility] Comment on above: Performed By: #### L 500.4100, L500.2500, L100.0100, L503.6550, L503.6030 #### [facility] [address] [place], [address] Monocytes/100 WBC (Bld) 10.7 % High 0-10 [facility] Comment on above: Performed By: #### L 500.4100, L500.2500, L100.0100, L503.6550, L503.6030 #### [facility] [address] [place], [address] Neutrophils/100 WBC (Bld) 60.4 % Normal 47-70 [facility] Comment on above: Performed By: #### L 500.4100, L500.2500, L100.0100, L503.6550, L503.6030 #### [facility] [address] [place], [address] Nucleated RBC (Bld) [#/Vol] 0 10*3/uL Normal 0-5 [facility] Comment on above: Performed By: #### L 500.4100, L500.2500, L100.0100, L503.6550, L503.6030 #### [facility] [address] [place], [address] Platelet mean volume (Bld) [Entitic vol] 10.8 fL Normal 6.2-12.0 [facility] Comment on above: Performed By: #### L 500.4100, L500.2500, L100.0100, L503.6550, L503.6030 #### [facility] [address] [place], [address] Platelets (Bld) [#/Vol] 200 10*3/uL Normal 150-450 [facility] Comment on above: Performed By: #### L 500.4100, L500.2500, L100.0100, L503.6550, L503.6030 #### [facility] [address] [place], [address] RBC (Bld) [#/Vol] 4.48 10*6/uL Normal 4.2-5.4 [facility] Comment on above: Performed By: #### L 500.4100, L500.2500, L100.0100, L503.6550, L503.6030 #### [facility] [address] [place], [address] RDW SD 45.2 fl High 35.1-43.9 [facility] Comment on above: Performed By: #### L 500.4100, L500.2500, L100.0100, L503.6550, L503.6030 #### [facility] [address] [place], [address] WBC (Bld) [#/Vol] 4.8 10*3/uL Normal 4.4-11.0 [facility] Comment on above: Performed By: #### L 500.4100, L500.2500, L100.0100, L503.6550, L503.6030 #### [facility] [address] [place], [address] Ferritinon 02-23-2024 Ferritin [Mass/Vol] 89 ng/mL Normal 8-252 [facility] Comment on above: Performed By: #### L 500.4100, L500.2500, L100.0100, L503.6550, L503.6030 #### [facility] [address] [place], [address] Iron+Iron Binding Capacityon 02-23-2024 Iron [Mass/Vol] 78 ug/dL Normal 50-170 [facility] Comment on above: Performed By: #### L 500.4100, L500.2500, L100.0100, L503.6550, L503.6030 #### [facility] [address] [place], [address] IRON SATURATION 20.7 Normal 15.0-55.0 [facility] Comment on above: Performed By: #### L 500.4100, L500.2500, L100.0100, L503.6550, L503.6030 #### [facility] [address] [place], [address] TIBC 377 ug/dL Normal 250-450 [facility] Comment on above: Performed By: #### L 500.4100, L500.2500, L100.0100, L503.6550, L503.6030 #### [facility] [address] [place], [address] Lipid Profileon 02-23-2024 Cholesterol [Mass/Vol] 207 mg/dL High 200 [facility] Comment on above: Result Comment: <200 mg/dL Desirable 200-240 mg/dL Borderline >240 mg/dL High Risk Performed By: #### L 500.4100, L500.2500, L100.0100, L503.6550, L503.6030 #### [facility] [address] [place], [address] Cholesterol in HDL [Mass/Vol] 81 mg/dL Normal [facility] Comment on above: Result Comment: The drugs N-Acetylcysteine and Metamizole may falsely depress this assay. Reference Range HDL <40 mg/dL Low HDL Cholesterol HDL >or= 60 mg/dL High HDL Cholesterol Performed By: #### L 500.4100, L500.2500, L100.0100, L503.6550, L503.6030 #### [facility] [address] [place], [address] Cholesterol in LDL [Mass/Vol] 106 mg/dL Normal 0-130 [facility] Comment on above: Performed By: #### L 500.4100, L500.2500, L100.0100, L503.6550, L503.6030 #### [facility] [address] [place], [address] Cholesterol in VLDL [Mass/Vol] 20 mg/dL Normal 5-40 [facility] Comment on above: Performed By: #### L 500.4100, L500.2500, L100.0100, L503.6550, L503.6030 #### [facility] [address] [place], [address] Triglyceride [Mass/Vol] 98 mg/dL Normal [facility] Comment on above: Result Comment: The drugs N-Acetylcysteine and Metamizole may falsely depress this assay. Serum Triglycerides Reference Interval Normal <150 mg/dL Borderline high 150 - 199 mg/dL High 200 - 499 mg/dL Very High > or = 500 mg/dL Performed By: #### L 500.4100, L500.2500, L100.0100, L503.6550, L503.6030 #### [facility] [address] [place], [address] Encounters Encounter Date Encounter Type Care Provider Facility Start: 12-14-2024 ambulatory [facility] Facility:[facility] Start: 12-13-2024 [facility] Facility:[facility] Start: 07-06-2024 End: 07-06-2024 [facility] Facility:[facility] Start: 03-02-2024 End: 03-02-2024 ambulatory [facility] Facility:[facility] Start: 02-23-2024 End: 02-23-2024 ambulatory [facility] Facility:[facility] Start: 07-05-2023 End: 07-05-2023 ambulatory [facility]h Work Phone: Start: 07-05-2023 End: 07-05-2023 Patient encounter procedure [facility] Work Phone: Procedures Date Procedure Procedure Detail Performing Clinician Start: 07-05-2023 Screening mammography Payers Date Payer Category Payer Medicare [id number] 2024 Private Health Insurance [facility] [id number] 2024 Self-pay [id number] 2012 Unknown [facility] [id number] Unknown [id number] Unknown [id number] Unknown [id number] Unknown [id number] Unknown [id number] Social History Date Type Detail [facility] Work Phone: Start: 1950 Sex Assigned At Female [facility] Evaluation note Note Date & Type Note Facility Evaluation note No assessment information availa ble [facility] Work Phone: Chief Complaint and Reason for [...] ized section and content) DATE CREATED AUTHOR 12/14/2024 [facility] FOR RECORDS PERTAINING TO PATIENTS WHO [...] BE BASED ON THE PRIMARY CLINICAL RECORDS. [employer] provides no warranty or guarantee of the accuracy or completeness of information in this document.
[2024-12-18 11:10] LABS: Pathologist Comment Reviewed
== END | disposition home or self-care (01) ==
LOC: LABSPEC 10:18
PROVIDERS: PCP Family Medicine; Referring Provider Specialist; Visit Provider Specialist
DX: T84.84XD Pain due to internal orthopedic prosthetic devices, implants and grafts, subsequent encounter (principal); Z96.652 Presence of left artificial knee joint
CPT/HCPCS: 80299; 87015; 87070; 87075; 87101; 87116; 87205; 87206; 89050; 89051

== ENCOUNTER → 2025-02-06 | Outpatient (CLI) | payer MEDICARE, OTHER, SELFPAY ==
[2025-02-06 16:23] LABS: Anion Gap 13 (5-15); BUN 27 mg/dL (4-19); BUN/Creat Ratio 22.4 RATIO (10-20); Calcium,Total 10.0 mg/dL (7.6-11.0); Carbon Dioxide 21.6 mmol/L (21.0-32.0); Chloride 102 mmol/L (98-108); Cholesterol 209 mg/dL (<=200); Glucose 91 mg/dL (70-99); Low Density Lipoprotein Calc. 108 mg/dL; Potassium 4.3 mmol/L (3.3-5.1); Triglycerides 94 mg/dL; Very Low Density Lipoprotein 19 mg/dL (5-40); cholesterol:hdl ratio screen 2.56
== END | disposition home or self-care (01) ==
LOC: MFPLAB 11:52
PROVIDERS: PCP Family Medicine; Referring Provider Family Medicine; Visit Provider Family Medicine
DX: Z00.00 Encounter for general adult medical examination without abnormal findings (principal); E78.5 Hyperlipidemia, unspecified
CPT/HCPCS: 36415; 80048; 80061

== ENCOUNTER → 2025-03-07 | Outpatient (CLI) | payer MEDICARE, OTHER, SELFPAY ==
--- NOTE | 2025-03-07 08:25 | BD_ITS ---
PROCEDURE: DEXA BONE DENSITY STUDY 03/07/2025 REASON FOR EXAM: F, age 74 y/o . Postmenopausal. TECHNIQUE: DEXA BONE DENSITY STUDY COMPARISON: December 05, 2018. FINDINGS: BMD and T-SCORES Lumbar spine: 0.947 g/cm2, T-score -0.9 Levels: L1 through L4 Change from prior: Improvement of 2.2%. Right femoral neck: 0.639 g/cm2, T-score -1.9 Femoral neck comparison data not recommended for monitoring change. Right total hip: 0.880 g/cm2, T-score -0.5 Change from prior: Improvement of 9.7%. The World Health Organization has defined the following categories based on bone density: Normal bone density: T-score equal to or greater than -1.0 Osteopenia: T-score between -1.0 and -2.5 Osteoporosis: T-score equal to or less than -2.5 FRAX (or Comparable) Fracture Risk Assessment: 10 Year Probability of Fracture: Major Osteoporotic Fracture: 11% Hip Fracture: 2.3% (Note: FRAX is not to be reported in setting of normal range bone density, osteoporosis on DEXA, known history of osteoporosis, prior osteoporotic hip or vertebral fracture, or for any patient undergoing pharmacological treatment for bone loss.) The National Osteoporosis Foundation (NOF) recommends pharmacological treatment for patients with a FRAX 10-year risk of 3% or higher for a hip fracture, or 20% or higher for a major osteoporotic fracture, to prevent osteoporosis and reduce fracture risk. The patient does meet the pharmacological treatment recommendations for prevention of osteoporosis. BD/Dexa Bone Density Study IMPRESSION: OSTEOPENIA. Recommend follow-up as clinically warranted. Reading Location: [id number]
--- OUTSIDE RECORDS SUMMARY | 2025-03-07 08:50 | XMS RPT_ITS | CCD ---
Author Organization [facility] Care Team Providers Care Acute Care Registered Nurse Name Role Phone Chase BOOTHE, Dr. Valdes Primary Care Provider Lauren Collins Attending Provider Andry OTERO, Lauren Referring Provider [phone] Srinivas BOOTHE, Dr. Hodges Attending Provider [phone] Srinivas BOOTHE, Dr. Hodges Referring Provider Chase BOOTHE, Dr. Valdes Attending Provider Chase BOOTHE, Dr. Valdes Referring Provider [phone] Lucio Stone Referring Unavailable Stone, Lucio Primary Care Unavailable Stone, Lucio Attending Unavailable Stone, Lucio Primary Care Unavailable Stone, Lucio Attending Unavailable Stone, Lucio Referring Unavailable Stone, Lucio Primary Care Unavailable Stone, Lucio Attending Unavailable Stone, Lucio Referring Unavailable Stone, Lucio Primary Care Unavailable Srinivas, Carroll Attending Unavailable Srinivas, Carroll Referring Unavailable Stone, Lucio Primary Care Unavailable Andry, Lauren Attending Unavailable Andry, Lauren Referring Unavailable Problems Active Problems Problem Classification Problem Date Documented Da te Episodic/Chronic Complication of device; implant or graft (2 sources) Pain due to internal orthopedic prosthetic devices, implants and grafts, subsequent encounter; Translations: [Pain due to internal orthopedic prosthetic devices, implants and grafts, initial encounter] Onset: 12-21-2024 Episodic Residual codes; unclassified (1 source) Asymptomatic menopausal state; Translations: [Asymptomatic menopausal state] Onset: 03-01-2025 Episodic Past or Other Problems Problem Classification Problem Date Documented Da te Episodic/Chronic Other screening for suspected conditions (not mental disorders or infectious disease) (1 source) Encounter for screening mammogram for malignant neoplasm of breast; Translations: [Encounter for screening mammogram for malignant neoplasm of breast] Onset: 08-01-2024 Episodic Results Test Name Value Interpretation Reference Range Facility Anion gap in Serum or Plasma Ordered By: Lucio Stone on 02-06-2025 Anion gap [Moles/Vol] 13 mmol/L - [facility] BUN/creatinine ratioOrdered By: Lucio Stone on 02-06-2025 Urea nitrogen/Creatinine [Mass ratio] 22.4 mg/mg High 04-29 [facility] Basic Metabolic Profile (BMP )on 02-06-2025 BUN/CRE 22.4 RATIO High 04-29 [facility] Comment on above: Performed By: #### L 500.4100, L500.2500 #### [facility] [address] [place], [address] Calcium [Mass/Vol] 10.0 mg/dL Normal 7.6-11.0 [facility] Comment on above: Performed By: #### L 500.4100, L500.2500 #### [facility] [address] [place], [address] Chloride [Moles/Vol] 102 mmol/L Normal 98-108 [facility] Comment on above: Performed By: #### L 500.4100, L500.2500 #### [facility] [address] [place], [address] CO2 [Moles/Vol] 21.6 mmol/L Normal 21.0-32.0 [facility] Comment on above: Performed By: #### L 500.4100, L500.2500 #### [facility] [address] [place], [address] Creatinine [Mass/Vol] 1.21 mg/dL High 0.70-1.20 [facility] Comment on above: Performed By: #### L 500.4100, L500.2500 #### [facility] [address] [place], [address] GAP 13 Normal - [facility] Comment on above: Performed By: #### L 500.4100, L500.2500 #### [facility] [address] [place], [address] GFR/1.73 sq M.predicted among non-blacks MDRD (S/P/Bld) [Vol rate/Area] 48 mL/min/{1.73_m2} Low >60 [facility] Comment on above: Result Comment: mL/m in/1.73m2 CKD-EPI Creatinine Equation (2020) Performed By: #### L 500.4100, L500.2500 #### [facility] [address] [place], [address] Glucose [Mass/Vol] 91 mg/dL Normal 70-99 [facility] Comment on above: Performed By: #### L 500.4100, L500.2500 #### [facility] [address] [place], [address] Potassium [Moles/Vol] 4.3 mmol/L Normal 3.3-5.1 [facility] Comment on above: Performed By: #### L 500.4100, L500.2500 #### [facility] [address] [place], [address] Sodium [Moles/Vol] 137 mmol/L Normal 133-145 [facility] Comment on above: Performed By: #### L 500.4100, L500.2500 #### [facility] [address] [place], [address] Urea nitrogen [Mass/Vol] 27 mg/dL High 4-19 [facility] Comment on above: Performed By: #### L 500.4100, L500.2500 #### [facility] [address] [place], [address] Calculated very low density lipoprotein (VLDL) cholesterol measurementOrdered By: Lucio Stone on 02-06-2025 Calculated very low density lipoprotein (VLDL) cholesterol measurement 19 mg/dL 5-40 [facility] Carbon dioxide, total [Moles /volume] in Central venous bloodOrdered By: Lucio Stone on 02-06-2025 CO2 [Moles/Vol] 21.6 mmol/L 21.0-32.0 [facility] Chloride assayOrdered By: Christos Stone on 02-06-2025 Chloride [Moles/Vol] 102 mmol/L 98-108 [facility] [place] Glomerular filtration rate ( GFR) estimation/1.73 sq m using serum, plasma, or whole bOrdered By: Lucio Stone on 02-06-2025 GFR/1.73 sq M.predicted among non-blacks MDRD (S/P/Bld) [Vol rate/Area] 48 mL/min/{1.73_m2} Low >60 [facility] Comment on above: mL/min/1.73m2 CKD-EP I Creatinine Equation (2020) LDL calc ser/plasOrdered By: Lucio Stone on 02-06-2025 Cholesterol in LDL [Mass/Vol] 108 mg/dL [facility] Comment on above: Ujfigzfnwh=722-553 m g/dL & Higher Wcjh=099 mg/dL or greaterFriedwald Equation for LDL-C Lipid Profileon 02-06-2025 CHOL:HDL 2.56 Normal [facility] Comment on above: Performed By: #### L 500.4100, L500.2500 #### [facility] [address] [facility] [place], [place], [phone] ([phone] Cholesterol [Mass/Vol] 209 mg/dL High <=200 [facility] Comment on above: Result Comment: Chol esterol level, Desirable <200 mg/dL Borderline high cholesterol 200-239 mg/dL High cholesterol >=240 mg/dL Recommendations of the NCEP Adult Treatment Panel for the following risk-cutoff thresholds for the [place] population. Performed By: #### L 500.4100, L500.2500 #### [facility] [address] [facility] [place], [address] Cholesterol in HDL [Mass/Vol] 82 mg/dL Normal [facility] Comment on above: Result Comment: Shae onal Cholesterol Education Program (NCEP) guidelines: <40 mg/dL: Low HDL-cholesterol (major risk factor for CHD) >= 60 mg/dL: High HDL-cholesterol (negative risk factor for CHD) HDL-cholesterol is affected by a number of factors, e.g. smoking, exercise, hormones, sex and age. Performed By: #### L 500.4100, L500.2500 #### [facility] [address] [place], [address] Cholesterol in LDL [Mass/Vol] 108 mg/dL Normal [facility] Comment on above: Result Comment: Bord heuzxv=484-212 mg/dL Higher Cobx=932 mg/dL or greater Friedwald Equation for LDL-C Performed By: #### L 500.4100, L500.2500 #### [facility] [address] [place], [address] Cholesterol in VLDL [Mass/Vol] 19 mg/dL Normal 5-40 [facility] Comment on above: Performed By: #### L 500.4100, L500.2500 #### [facility] [address] [place], [address] Triglyceride [Mass/Vol] 94 mg/dL Normal [facility] Comment on above: Result Comment: The drugs N-Acetylcysteine and Metamizole may falsely depress this assay. Normal range: <150 mg/dL Borderline High: 150-199 mg/dL High: 200-499 mg/dL Very High: >500 mg/dL Performed By: #### L 500.4100, L500.2500 #### [facility] [address] [place], [address] Potassium measurement (mass/ volume)Ordered By: Lucio Stone on 02-06-2025 Potassium (Unsp spec) [Mass/Vol] 4.3 mmol/L 3.3-5.1 [facility] Screening total cholesterol/ high density lipoprotein (HDL) cholesterol ratioOrdered By: Lucio Stone on 02-06-2025 Cholesterol.total/Choles terol in HDL [Mass ratio] 2.56 {ratio} [facility] Serum creatinine measurement (mass/volume)Ordered By: Lucio Stone on 02-06-2025 Creatinine [Mass/Vol] 1.21 mg/dL High 0.70-1.20 [facility] Serum glucose measurement (m ass/volume)Ordered By: Lucio Stone on 02-06-2025 Glucose [Mass/Vol] 91 mg/dL 70-99 [facility] Serum or plasma calcium naveen urement (mass/volume)Ordered By: Lucio Stone on 02-06-2025 Calcium [Mass/Vol] 10.0 mg/dL 7.6-11.0 [facility] Serum or plasma cholesterol in HDL measurement (mass/volume)Ordered By: Lucio Stone on 02-06-2025 Cholesterol in HDL [Mass/Vol] 82 mg/dL >40 [facility] Comment on above: National Cholesterol Education Program (NCEP) guidelines:<40 mg/dL: Low HDL-cholesterol (major risk factor for CHD)>= 60 mg/dL: High HDL-cholesterol (negative risk factor for CHD)HDL-cholesterol is affected by a number of factors, e.g. smoking, exercise, hormones, sex and age. Serum or plasma cholesterol measurement (mass/volume)Ordered By: Lucio Stone on 02-06-2025 Cholesterol [Mass/Vol] 209 mg/dL High <201 [facility] Comment on above: Cholesterol level, D esirable <200 mg/dLBorderline high cholesterol 200-239 mg/dLHigh cholesterol >=240 mg/dLRecommendations of the NCEP Adult Treatment Panel for the following risk-cutoff thresholds for the [place] population. Serum or plasma urea nitroge n measurement (mass/volume)Ordered By: Lucio Stone on 02-06-2025 Urea nitrogen [Mass/Vol] 27 mg/dL High 4-19 [facility] Sodium levelOrdered By: Lucio Stone on 02-06-2025 Sodium [Moles/Vol] 137 mmol/L 133-145 [facility] Triglycerides measurementOrd ered By: Lucio Stone on 02-06-2025 Triglyceride [Mass/Vol] 94 mg/dL <199 [facility] Comment on above: The drugs N-Acetylcy steine and Metamizole may falsely depress this assay. Normal range: <150 mg/dLBorderline High: 150-199 mg/dLHigh: 200-499 mg/dLVery High: >500 mg/dL Acid Fast Bacillus Cultureon 01-26-2025 tAFBC __ TESTING PERFORMED AT [facility]. ORIGINAL REPORT ON FILE IN LAB CONTAINS ADDITIONAL TEST SITE INFORMATION. Culture, Acid Fast NO ACID-FAST BACILLI ISOLATED AFTER 6 WEEKS. Normal [facility] Comment on above: Performed By: #### M 100.4001, M300.2000, L3800.1475, M300.3000, L200.0400, M100.2900, M100.1999, #### [facility] [address] [place], [place], [id number] Acid Fast Bacillus Smear/Flu oron 01-26-2025 tafb __ TESTING PERFORMED AT [facility]. ORIGINAL REPORT ON FILE IN LAB CONTAINS ADDITIONAL TEST SITE INFORMATION. Smear, Acid Fast Direct Innoculation: Negative Normal [facility] Comment on above: Performed By: #### M 100.4001, M300.2000, L3800.1475, M300.3000, L200.0400, M100.2900, M100.1999, #### [facility] [address] [place], [address] Culture, Fungus 8482on 01-26 CUF __ TESTING PERFORMED AT [facility]. ORIGINAL REPORT ON FILE IN LAB CONTAINS ADDITIONAL TEST SITE INFORMATION. CUF No yeast or mold isolated after 4 weeks. [facility] Comment on above: Performed By: #### M 100.4001, M300.2000, L3800.1475, M300.3000, L200.0400, M100.2900, M100.1999, M600.1999 #### [facility] [address] [place], [address] Body Fluid Culton 12-19-2024 BFC UNKNOWN UNKNOWN No growth in 5 days. [facility] Comment on above: Performed By: #### M 100.4001, M300.2000, L3800.1475, M300.3000, L200.0400, M100.2900, M100.1999, M600.1999 #### [facility] [address] [place], [address] Culture, Anaerobic Any Sourc marjan 12-19-2024 CUAN UNKNOWN UNKNOWN No growth in 5 days. [facility] Comment on above: Performed By: #### M 100.4001, M300.2000, L3800.1475, M300.3000, L200.0400, M100.2900, M100.1999, M6.1999 #### [facility] [address] [place], [address] Synovial Fluid RBC, WBC AND Diffon 12-18-2024 PATH COM/SYFL Reviewed [facility] Comment on above: Result Comment: NEUT ROPHILS - 43 LYMPHOCYTES - 31 MONOCYTES - 21 SYNOVIAL - 5 NO MALIGNANT CELLS IDENTIFIED. Marjorie Chase MD 12/18/2024 AMENDED REPORT 12/18/24 1109 PATH COM/SYFL previously reported as: May follow Performed By: #### M 100.4001, M300.2000, L3800.1475, M300.3000, L200.0400, M100.2900, M100.2000, M600.1999 #### [facility] [address] [place], [place], [address] Gram Stainon 12-17-2024 GS UNKNOWN UNKNOWN Gram Stain No organisms seen Normal [facility] Comment on above: Performed By: #### M 100.4001, M300.2000, L3800.1475, M300.3000, L200.0400, M100.2900, M100.2000, M600.1999 #### [facility] [address] [place], [place], [address] Acid fast bacillus (AFB) cul tureOrdered By: Carroll Espino on 12-14-2024 Mycobacterium sp identified Org specific cx Nom (Unsp spec) [facility] Anaerobic cultureOrdered By: Carroll Espino on 12-14-2024 Bacteria identified Anaer cx Nom (Unsp spec) No growth in 5 days. [facility] Automated synovial fluid guru kocytes count (number/volume)Ordered By: Carroll Espino on 12-14-2024 WBC Auto (Syn fld) [#/Vol] 0.7680 10^3/uL High 0.000-0.002 [facility] Automated synovial fluid mon onuclear cell count (number/volume)Ordered By: Carroll Espino on 12-14-2024 Mononuclear cells Auto (Syn fld) [#/Vol] 0.436 10^3/ul [facility] Automated synovial fluid jaiden ymorphonuclear cell count (number/volume)Ordered By: Carroll Espino on 12-14-2024 Polymorphonuclear cells Auto (Syn fld) [#/Vol] 0.332 10^3/uL [facility] Automated synovial fluid jaiden ymorphonuclear cells as percentage of leukocytesOrdered By: Carroll Espnio on 12-14-2024 Polymorphonuclear cells/100 WBC Auto (Syn fld) 43.3 % [facility] Blood lymphocytes/100 leukoc ytesOrdered By: Carroll Espino on 12-14-2024 Lymphocytes/100 WBC (Bld) 31 % [facility] Determination of appearance of synovial fluid (nominal result)Ordered By: Carroll Espino on 12-14-2024 Appearance (Syn fld) Sl Cl CLEAR os [facility] ([place]) Levelo n 12-14-2024 FLECAINIDE Normal [facility] Comment on above: Result Comment: WRON G TEST Performed By: #### M 100.4001, M300.2000, L3800.1475, M300.3000, L200.0400, M100.2900, M100.2000, M600.2000 #### [facility] [place], [place], [id number] Fungus cultureOrdered By: St sky Espino on 12-14-2024 Fungus identified Cx Nom (Unsp spec) [facility] Gram stainOrdered By: Carroll Espino on 12-14-2024 Microscopic observation Gram stain Nom (Unsp spec) [facility] Pathologist review of result s (narrative result)Ordered By: Carroll Espino on 12-14-2024 Pathologist review Vick (Unsp spec) [Interp] Reviewed [facility] Comment on above: Previous reported re sult: May follow Edited by: ALEX on 12/18/24:1109NEUTROPHILS - 43LYMPHOCYTES - 31MONOCYTES - 21SYNOVIAL - 5NO MALIGNANT CELLS IDENTIFIED.Marjorie Chase MD 12/18/2024 AMENDED REPORT 12/18/24 1109 PATH COM/SYFL previously reported as: May follow Qualitative synovial fluid v iscosityOrdered By: Carroll Espino on 12-14-2024 Viscosity Ql (Syn fld) Sl. Viscous HIGH [facility] Specimen source identificati on of body fluidOrdered By: Carroll Espino on 12-14-2024 Specimen source Nom (Body fld) [facility] Synovial fluid color determi nation (nominal result)Ordered By: Carroll Espino on 12-14-2024 Color (Syn fld) Yellow Pale Yellow [facility] Synovial fluid erythrocytes count (number/volume)Ordered By: Carroll Espino on 12-14-2024 RBC (Syn fld) [#/Vol] 0.006 10^6/uL High 0-0 [facility] Synovial fluid monocyte perc entageOrdered By: Carroll Espino on 12-14-2024 Monocytes/100 WBC (Syn fld) 13 % [facility] Synovial fluid mononuclear c ells/100 leukocytesOrdered By: Carroll Espino on 12-14-2024 Mononuclear cells/100 WBC (Syn fld) 56.7 % [facility] Synovial fluid neutrophil pe rcentageOrdered By: Carroll Espino on 12-14-2024 Neutrophils/100 WBC (Syn fld) 54 % High 0-25 [facility] Synovial fluid other cells/1 00 leukocytes identificationOrdered By: Carroll Espino on 12-14-2024 Other cells/100 WBC Nom (Syn fld) 2 % [facility] Synovial fluid total cell co untOrdered By: Carroll Espino on 12-14-2024 Cells Counted Total (Syn fld) [#] 0.8230 10^3/uL High 0.000-0.000 [facility] Comment on above: This is the Total Nu mber of Nucleated Cell Types in the Body Fluid. Absolute lymphocyte countOrd ered By: Lauren Wilde on 12-13-2024 Lymphocytes Auto (Unsp spec) [#/Vol] 1.35 10*3/uL 0.83-4.51 [facility] Absolute neutrophil countOrd ered By: Lauren Wilde on 12-13-2024 Neutrophils (Bld) [#/Vol] 3.1 10*3/uL 2.0-7.7 [facility] Automated lymphocyte count a s percentage of total leukocytesOrdered By: Lauren Wilde on 12-13-2024 Lymphocytes/100 WBC Auto (Unsp spec) 26.0 % 19-41 [facility] Basophil percentageOrdered B y: Lauren Wilde on 12-13-2024 Basophils/100 WBC (Bld) 1.2 % High 0-1 [facility] CBC W/Diff, Automatedon 06-0 5-2025 Absolute Lymph 1.35 X10 3/uL Normal 0.83-4.51 [facility] Comment on above: Performed By: #### M 100.4001, M300.2000, L3800.1475, M300.3000, L200.0400, M100.2900, M100.2000, M600.1999 #### [facility] [address] [place], [address] Absolute Neut 3.1 X10 3/uL Normal 2.0-7.7 [facility] Comment on above: Performed By: #### M 100.4001, M300.2000, L3800.1475, M300.3000, L200.0400, M100.2900, M100.2000, M600.1999 #### [facility] [address] [place], [address] Basophils/100 WBC (Bld) 1.2 % High 0-1 [facility] Comment on above: Performed By: #### M 100.4001, M300.2000, L3800.1475, M300.3000, L200.0400, M100.2900, M100.2000, M600.1999 #### [facility] [address] [place], [address] Eosinophils/100 WBC (Bld) 2.5 % Normal 0-5 [facility] Comment on above: Performed By: #### M 100.4001, M300.2000, L3800.1475, M300.3000, L200.0400, M100.2900, M100.2000, M600.1999 #### [facility] [address] [place], [address] Erythrocyte distribution width (RBC) [Ratio] 12.4 % Normal 11.6-14.6 [facility] Comment on above: Performed By: #### M 100.4001, M300.2000, L3800.1475, M300.3000, L200.0400, M100.2900, M100.1999, M600.1999 #### [facility] [address] [place], [address] Hematocrit (Bld) [Volume fraction] 35.2 % Low 37-47 [facility] Comment on above: Performed By: #### M 100.4001, M300.1999, L3800.1475, M300.3000, L200.0400, M100.2900, M100.1999, M600 #### [facility] [address] [place], [address] Hemoglobin (Bld) [Mass/Vol] 11.7 g/dL Low 12.0-15.0 [facility] Comment on above: Performed By: #### M 100.4001, M300.1999, L3800.1475, M300.3000, L200.0400, M100.2900, M100.1999, M6 #### [facility] [address] [place], [address] IG% 0.200 Normal 0.0-0.9 [facility] Comment on above: Result Comment: IG% - Immature Granulocytes (promyelocytes, myelocytes and metamyelocytes) > 1% indicates that a LEFT SHIFT is Present. Performed By: #### M 100.4001, M300.1999, L3800.1475, M300.3000, L200.0400, M100.2900, M100.1999, M6 #### [facility] [address] [place], [address] Lymphocytes/100 WBC (Bld) 26.0 % Normal 19-41 [facility] Comment on above: Performed By: #### M 100.4001, M300.1999, L3800.1475, M300.3000, L200.0400, M100.2900, M100.1999, M6 #### [facility] [address] [place], [address] MCH (RBC) [Entitic mass] 30.7 pg Normal 27.0-32.0 [facility] Comment on above: Performed By: #### M 100.4001, M300.2000, L3800.1475, M300.3000, L200.0400, M100.2900, M100.2000, M600.1999 #### [facility] [address] [place], [address] MCHC (RBC) [Mass/Vol] 33.2 g/dL Normal 32-36 [facility] Comment on above: Performed By: #### M 100.4001, M300.2000, L3800.1475, M300.3000, L200.0400, M100.2900, M100.2000, M600.1999 #### [facility] [address] [place], [address] MCV (RBC) [Entitic vol] 92.4 fL Normal 81-99 [facility] Comment on above: Performed By: #### M 100.4001, M300.2000, L3800.1475, M300.3000, L200.0400, M100.2900, M100.2000, M600.1999 #### [facility] [address] [place], [address] Monocytes/100 WBC (Bld) 11.0 % High 0-10 [facility] Comment on above: Performed By: #### M 100.4001, M300.2000, L3800.1475, M300.3000, L200.0400, M100.2900, M100.2000, M600.1999 #### [facility] [address] [place], [address] Neutrophils/100 WBC (Bld) 59.1 % Normal 47-70 [facility] Comment on above: Performed By: #### M 100.4001, M300.2000, L3800.1475, M300.3000, L200.0400, M100.2900, M100.2000, M600.1999 #### [facility] [address] [place], [address] Nucleated RBC (Bld) [#/Vol] 0 10*3/uL Normal 0-5 [facility] Comment on above: Performed By: #### M 100.4001, M300.2000, L3800.1475, M300.3000, L200.0400, M100.2900, M100.2000, M600.1999 #### [facility] [address] [place], [address] Platelet mean volume (Bld) [Entitic vol] 10.5 fL Normal 6.2-12.0 [facility] Comment on above: Performed By: #### M 100.4001, M300.2000, L3800.1475, M300.3000, L200.0400, M100.2900, M100.1999, M600.1999 #### [facility] [address] [place], [address] Platelets (Bld) [#/Vol] 270 10*3/uL Normal 150-450 [facility] Comment on above: Performed By: #### M 100.4001, M300.2000, L3800.1475, M300.3000, L200.0400, M100.2900, M100.2000, M600.1999 #### [facility] [address] [place], [address] RBC (Bld) [#/Vol] 3.81 10*6/uL Low 4.2-5.4 [facility] Comment on above: Performed By: #### M 100.4001, M300.2000, L3800.1475, M300.3000, L200.0400, M100.2900, M100.2000, M600.1999 #### [facility] [address] [place], [address] RDW SD 42.3 fl Normal 35.1-43.9 [facility] Comment on above: Performed By: #### M 100.4001, M300.2000, L3800.1475, M300.3000, L200.0400, M100.2900, M100.1999, M600.1999 #### [facility] [address] [place], [place], [phone] (506) WBC (Bld) [#/Vol] 5.2 10*3/uL Normal 4.4-11.0 [facility] Comment on above: Performed By: #### M 100.4001, M300.2000, L3800.1475, M300.3000, L200.0400, M100.2900, M100.1999, M600.1999 #### [facility] [address] [place], [place], [id number] CRPon 12-13-2024 C-REACTIVE PROT 24.00 mg/L High 0.0-3.0 [facility] Comment on above: Performed By: #### M 100.4001, M300.2000, L3800.1475, M300.3000, L200.0400, M100.2900, M100.1999, M600.1999 #### [facility] [address] [place], [place], [id number] Eosinophil percentageOrdered By: Lauren Wilde on 12-13-2024 Eosinophils/100 WBC (Bld) 2.5 % 0-5 [facility] Erythrocyte Sed Rateon 12-13 SED RATE 13 mm/hr Normal 0-30 [facility] Comment on above: Performed By: #### M 100.4001, M300.2000, L3800.1475, M300.3000, L200.0400, M100.2900, M100.1999, M600.1999 #### [facility] [address] [place], [address] Erythrocyte distribution wid th ratioOrdered By: Lauren Wilde on 12-13-2024 Erythrocyte distribution width (RBC) [Ratio] 12.4 % 11.6-14.6 [facility] Erythrocyte distribution wid th standard deviationOrdered By: Lauren Wilde on 12-13-2024 Erythrocyte distribution width (RBC) [Ratio] 42.3 fl 35.1-43.9 [facility] Erythrocyte sedimentation ra teOrdered By: Lauren Wilde on 12-13-2024 ESR (Bld) [Velocity] 13 mm/h 0-30 [facility] Hematocrit Auto (Bld) [Volum e fraction]Ordered By: Lauren Wilde on 12-13-2024 Hematocrit (Bld) [Volume fraction] 35.2 % Low 37-47 [facility] Hemoglobin measurementOrdere d By: Lauren Wilde on 12-13-2024 Hemoglobin (Bld) [Mass/Vol] 11.7 g/dL Low 12.0-15.0 [facility] Immature granulocytes/100 WB C Auto (Bld)Ordered By: Lauren Wilde on 12-13-2024 Immature granulocytes/100 WBC (Bld) 0.200 % 0.0-0.9 [facility] Comment on above: IG% - Immature Granu locytes (promyelocytes, myelocytes and metamyelocytes) > 1% indicates that a LEFT SHIFT is Present. MCV (mean corpuscular volume ) determinationOrdered By: Lauren Wilde on 12-13-2024 MCV (RBC) [Entitic vol] 92.4 fL 81-99 [facility] Mean corpuscular hemoglobin (MCH) determinationOrdered By: Lauren Wilde on 12-13-2024 MCH (RBC) [Entitic mass] 30.7 pg 27.0-32.0 [facility] Mean corpuscular hemoglobin concentration (MCHC) determinationOrdered By: Lauren Wilde on 12-13-2024 MCHC (RBC) [Mass/Vol] 33.2 g/dL 32-36 [facility] Mean platelet volume determi nationOrdered By: Lauren Wilde on 12-13-2024 Platelet mean volume (Bld) [Entitic vol] 10.5 fL 6.2-12.0 [facility] Monocyte percentageOrdered B y: Lauren Wilde on 12-13-2024 Monocytes/100 WBC (Bld) 11.0 % High 0-10 [facility] Neutrophil percentageOrdered By: Laurenscotty Wilde on 12-13-2024 Neutrophils/100 WBC (Bld) 59.1 % 47-70 [facility] Nucleated red blood cell per centageOrdered By: Laurenscotty Wilde on 12-13-2024 Nucleated RBC/100 WBC (Bld) [Ratio] 0 % 0-5 [facility] Platelet countOrdered By: Lucy dion Wilde on 12-13-2024 Platelets (Bld) [#/Vol] 270 10*3/uL 150-450 [facility] RBC Auto (Bld) [#/Vol]Ordere d By: Lauren Wilde on 12-13-2024 RBC (Bld) [#/Vol] 3.81 10*6/uL Low 4.2-5.4 [facility] Serum or plasma C reactive p rotein measurement (mass/volume)Ordered By: Lauren Coronason on 12-13-2024 CRP [Mass/Vol] 24.00 mg/L High 0.0-3.0 [facility] White blood cell (WBC) count Ordered By: Lauren Coronason on 12-13-2024 WBC (Bld) [#/Vol] 5.2 10*3/uL 4.4-11.0 [facility] SCRN MAMM (CAD)W/WAYNE BILATo n 07-06-2024 SCRN MAMM (CAD)W/WAYNE BILAT [facility] [address], [place] [id number] SCRN MAMM (CAD)W/WAYNE BILAT MR#: [id number] Acct: [id number] Name: DESTINEE NICOLE Rep #: [id number] : 1950 F 74 From: Giovanni Romano MD PCP: Dr. Lucio Stone MD Status: REG CL Study: SCRN MAMM (CAD)W/WAYNE BILAT Date of Exam: 06/11 01/31 Exam# [id number] Ordering Dr: Lucio Stone MD [id number] MAMMOGRAPHY - BILATERAL SCREENING 3-D TOMOSYNTHESIS REASON [...] EST , CC: Dr. 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 Lucio Stone MD Work Phone: -Laboratory [facility] Start: 02-06-2025 End: 02-06-[address] Lucio Stone MD -Laboratory [facility] Start: 02-06-2025 End: 02-06-2025 ambulatory Lucio Stone Facility:[facility] Start: 12-14-2024 End: 12-14-[address] Lucio Stone MD Work Phone: [facility] Work Phone: Start: 12-14-2024 End: 12-14-[address] Carroll Espino MD -Laboratory Specimen Work Phone: Start: 12-13-2024 End: 12-14-[address] Lucio Stone MD Work Phone: [facility] Work Phone: Start: 12-13-2024 End: 12-13-2024 Patient encounter procedure Lauren OTERO -Laboratory Work Phone: Start: 12-13-2024 End: 12-13-2024 ambulatory Lucio Stone Facility:[facility] Start: 07-06-2024 End: 07-06-[facility]24 [facility] Start: 07-05-2023 End: 07-05-2023 ambulatory [facility] Work Phone: Start: 07-05-2023 End: 07-05-2023 Patient encounter procedure [facility]-Outpatient Breast Imaging Work Phone: Procedures Date Procedure Procedure Detail Performing Clinician Start: 12-14-2024 End: 12-14-[address] Lucio marshall MD Work Phone: Start: 12-14-[address] Lucio Stone MD Work Phone: Start: 12-14-2024 Gram stain microscopy D memo Stone MD Work Phone: Start: 12-14-2024 End: 12-14-2024 Microbial culture, body fluid Dr. Lucio Stone MD Work Phone: Start: 12-14-[address] Christos Stone MD Work Phone: Start: 07-05-2023 Screening mammography Plan of Treatment Date Care Activity Detail Author Start: 12-14-2024 Acid Fast Bacilli Culture Acid Fast Bacilli Culture [facility] Start: 12-14-2024 Acid Fast Bacilli Smear Acid F ast Bacilli Smear [facility] Start: 12-14-2024 Fungal Culture Fungal Culture [facility] Start: 12-14-2024 Acid fast bacilli culture [facility] Fungus identified in Unspecified specimen by Culture [facility] Mycobacterium sp identified in Unspecified specimen by Organism specific culture [facility] Payers Date Payer Category Payer Medicare [id number] 2024 Private Health Insurance [facility] [id number] 2024 Self-pay [id number] 2012 Unknown [id number] Unknown [id number] Unknown [id number] [id number] Unknown [id number] [id number] [id number] Unknown [id number] 2.16.8 [id number] Unknown [id number] [id number] [id number] Social History Date Type [facility]ail [facility] Work Phone: Start: 1950 Sex Assigned At Female [facility] Work Phone: Evaluation note Note Date & Type Note Facility Evaluation note No assessment information availa ble [facility] Work Phone: Reason for referral (narrative) Note Date & Type Note Facility Reason for referral (narrative) No reason for referral information available [facility] Work Phone: Chief Complaint and Reason [...] Provi claribel, Attending Provider, Referring Provider Active Team Status: Inactive Member Role Status Dates Dr. Lucio Stone MD Primary Care Provider Active Start: December 13, 2024 End: December 13, 2024 CHRISTOS Ann Attending Provider Active St art: December 13, 2024 End: December 13, 2024 CHRISTOS Ann Referring Provider Active St art: December 13, 2024 End: December 13, 2024 Team Status: Active Member Role Status Dates Dr. Lucio Stone MD Primary Care Provider Active Start: December 14, 2024 Dr. Carroll Espino MD Attending Provider Active Start: December 14, 2024 Dr. Carroll Espino MD Referring Provider Active Start: December 14, 2024 Team Status: Inactive Member Role Status Dates Dr. Lucio Stone MD Primary Care Provider Active Start: December 14, 2024 End: December 14, 2024 Dr. Carroll Espino MD Attending Provider Active Start: December 14, 2024 End: December 14, 2024 Dr. Carroll Espino MD Referring Provider Active Start: December 14, 2024 End: December 14, 2024 Team Status: Active Member Role/Relationship Status Dates Dr. Lucio Stone MD Family Provider Active Dr. Lucio Stone MD Primary Care Provider Active Team Status: Inactive Member Role/Relationship Status Dates Dr. Lucio Stone MD Primary Care Provider Active Start: December 13, 2024 End: December 13, 2024 CHRISTOS Ann Attending Provider Active St art: December 13, 2024 End: December 13, 2024 CHRISTOS Ann Referring Provider Active St art: December 13, 2024 End: December 13, 2024 Team Status: Inactive Member Role/Relationship Status Dates Dr. Lucio Stone MD Primary Care Provider Active Start: December 14, 2024 End: December 14, 2024 Dr. Carroll Espino MD Attending Provider Active Start: December 14, 2024 End: December 14, 2024 Dr. Carroll Espino MD Referring Provider Active Start: December 14, 2024 End: December 14, 2024 Team Status: Inactive Member Role/Relationship Status Dates Dr. Lucio Stone MD Primary Care Provider Active Start: February 06, 2025 End: February 06, 2025 Dr. Lucio Stone MD Attending Provider Active Start: February 06, 2025 End: February 06, 2025 Dr. Lucio Stone MD Referring Provider Active Start: February 06, 2025 End: February 06, 2025 Goals (unrecognized section and content) Goals may be documented in a n alternate sectionGoals may be documented in an alternate sectionGoals may be documented in an alternate sectionGoals may be documented in an alternate section INFORMATION SOURCE (unrecogn ized section and content) DATE CREATED AUTHOR 03/03/2025 [facility] FOR RECORDS PERTAINING TO PATIENTS WHO [...] BE BASED ON THE PRIMARY CLINICAL RECORDS. [employer] provides no warranty or guarantee of the accuracy or completeness of information in this document.
== END | disposition home or self-care (01) ==
LOC: OPBD 08:24
PROVIDERS: PCP Family Medicine; Referring Provider Family Medicine; Visit Provider Family Medicine
DX: Z78.0 Asymptomatic menopausal state (principal)
CPT/HCPCS: 77080